=== PATIENT | male | born 1935 | race Hispanic/Latino ===

== ENCOUNTER 2019-02-08 20:04 | Emergency (ER) | payer MEDICARE ==
--- NOTE | 2019-02-08 20:22 | Emergency Department Report ---
Blank Doc - Documentation Documentation: 83 y/o male c/o abd pain.
[2019-02-08 21:04] LABS: Basophils # (Auto) 0.1 K/mm3 (0.0-0.1); Basophils % (Auto) 1.2 % (0.0-1.8); Eosinophils # (Auto) 0.2 K/mm3 (0.0-0.4); Eosinophils % (Auto) 2.7 % (0.0-4.3); Hematocrit 40.2 % (35.5-45.6); Hemoglobin 13.9 gm/dl (11.8-15.2); Lymphocytes # (Auto) 2.3 K/mm3 (1.2-5.4); Mean Corpuscular HGB Conc 35 % (32-34); Mean Corpuscular Volume 94 fl (84-94); Monocytes # (Auto) 0.6 K/mm3 (0.0-0.8); Monocytes % (Auto) 7.4 % (0.0-7.3); Platelet Count 208 K/mm3 (140-440); Red Blood Count 4.28 M/mm3 (3.65-5.03); Red Cell Distribution Width 13.5 % (13.2-15.2)
[2019-02-08 21:21] LABS: Calcium 8.8 mg/dL (8.4-10.2)
[2019-02-08 21:22] LABS: Albumin 4.1 g/dL (3.9-5)
--- NOTE | 2019-02-08 23:01 | Emergency Department Report ---
HPI - General Chief Complaint: Abdominal Pain Time Seen by Provider: 02/08/19 20:18 - HPI HPI: 83-year-old male presents to the emergency department for evaluation of some abdominal pain that he was having. Currently, the patient denies any abdominal pain. He denies any chest pain, shortness of breath, back pain, dysuria, constipation or diarrhea, fever. He has a past medical history of dementia, CVA and coronary artery disease with previous CABG. The patient's son is currently at bedside and says that when he arrived at his father's residence this afternoon that the patient was complaining of some abdominal pain. He has not taken anything for his symptoms prior to arrival. ED Past Medical Hx - Past Medical History Previous Medical History?: Yes Hx Hypertension: Yes Hx CVA: Yes Hx Renal Disease: Yes Hx Dementia: Yes Additional medical history: high cholesterol, history of recurrent gouty arthritis - Surgical History Past Surgical History?: Yes Hx Open Heart Surgery: Yes (CARDIAC BY PASS TRIPPLE BYPASS HX) - Social History Smoking Status: Never Smoker Substance Use Type: None - Medications Home Medications: Home Medications Medication Instructions Recorded Confirmed Last Taken Type Benazepril HCl [Lotensin] 40 mg PO DAILY 09/03/14 05/18/17 Unknown History Metoprolol [Lopressor TAB] 100 mg PO DAILY 09/03/14 05/18/17 Unknown History Simvastatin (Nf) [Zocor TAB] 20 mg PO QHS 09/03/14 05/18/17 Unknown History Donepezil [Aricept] 10 mg PO QDAY 05/18/17 05/18/17 Unknown History Rivastigmine [Rivastigmine Patch 1 each TRANSDERMA DAILY 05/18/17 05/18/17 Unknown History 13.3mg/24hr] levoFLOXacin [Levaquin TAB] 500 mg PO Q24HR #7 tablet 05/24/17 Unknown Rx ED Review of Systems ROS: Stated complaint: ABDOMINAL PAIN Other details as noted in HPI Comment: All other systems reviewed and negative Constitutional: denies: chills, fever Eyes: denies: eye pain, vision change ENT: denies: ear pain, throat pain Respiratory: denies: cough, shortness of breath Cardiovascular: denies: chest pain, palpitations Gastrointestinal: abdominal pain. denies: vomiting Genitourinary: denies: dysuria, discharge Musculoskeletal: denies: back pain, arthralgia Skin: denies: rash, lesions Neurological: denies: headache, weakness Physical Exam - Physical Exam Vital Signs: Vital Signs 02/08/19 20:18 Temperature 98.5 F Pulse Rate 75 Respiratory 19 Rate Blood Pressure 142/70 O2 Sat by Pulse 95 Oximetry Physical Exam: GENERAL: The patient is well-developed well-nourished. HEENT: Normocephalic. Atraumatic. Patient has moist mucous membranes. EYES: Extraocular motions are intact. NECK: Supple. Trachea is midline. CHEST/LUNGS: Clear to auscultation. There is no respiratory distress noted. HEART/CARDIOVASCULAR: Regular. There is no tachycardia. There is no obvious murmur. ABDOMEN: Abdomen is soft, nontender. Patient has normal bowel sounds. There is no abdominal distention. SKIN: Skin is warm and dry. NEURO: The patient is awake, alert, and oriented. The patient is cooperative. The patient has no focal neurologic deficits. The patient has normal speech. MUSCULOSKELETAL: There is no tenderness or deformity. There is no limitation range of motion. There is no evidence of acute injury. ED Course Vital Signs 02/08/19 20:18 Temperature 98.5 F Pulse Rate 75 Respiratory 19 Rate Blood Pressure 142/70 O2 Sat by Pulse 95 Oximetry ED Medical Decision Making - Lab Data Result diagrams: 02/08/19 20:41 02/08/19 20:41 - Medical Decision Making this patient originally must have complained of abdominal pain to his son that them to urgent care, and then to this emergency department within the urgent care would not see them. He had some labs to triage that are unremarkable including a CBC and CMP. The patient denies any abdominal pain or any symptoms at this time. Since the patient does have some history of dementia, I did a thorough physical examination, and asked multiple questions including review of systems, but the patient denies any complaints. Vital signs are stable throughout his ED course and the patient has been here for about 3 hours. Since he is asymptomatic with unremarkable labs and normal/stable vitals, the patient will be discharged home. They have been instructed to return to the emergency department immediately if there is any return of his abdominal pain, or with any acute distress. Critical Care Time: No Critical care attestation.: If time is entered above; I have spent that time in minutes in the direct care of this critically ill patient, excluding procedure time. ED Disposition Clinical Impression: Intermittent abdominal pain Disposition: DC- TO HOME OR SELFCARE Is pt being admited?: No Condition: Stable Instructions: Abdominal Pain (ED) Additional Instructions: Return to the emergency department if you have any return of your abdominal pain, any acute distress. Otherwise, follow-up with your primary care physician. Referrals: Primary Care Physician, Your [Other] - 2-3 Days Time of Disposition: 23:00
[2019-02-08 23:24] VITALS: BP 138/71
== END 2019-02-08 23:05 | disposition home or self-care (01) ==
LOC: ED 20:04
DX: R10.9 Unspecified abdominal pain (principal); I10 Essential (primary) hypertension; E78.00 Pure hypercholesterolemia, unspecified; Z86.73 Personal history of transient ischemic attack (TIA), and cerebral infarction without residual deficits; Z95.1 Presence of aortocoronary bypass graft
CPT/HCPCS: 36415; 80053; 85025; 99283

== ENCOUNTER 2019-03-19 09:31 | Emergency (ER) | payer MEDICARE ==
--- NOTE | 2019-03-19 10:45 | XRay Report ---
RIGHT KNEE, 3 views: History: Pain. Normal bone mineralization. Moderate medial compartment joint space narrowing is identified. Mild retropatellar and tibial spine spurring. There is mild calcinosis of the lateral meniscus. No evidence for fracture, bone lesion or large joint effusion. Diffuse vascular calcifications are noted consistent with diabetes or peripheral vascular disease. IMPRESSION: Mild osteoarthritis.
[2019-03-19 10:58] LABS: Basophils # (Auto) 0.1 K/mm3 (0.0-0.1); Basophils % (Auto) 0.5 % (0.0-1.8); Eosinophils % (Auto) 0.3 % (0.0-4.3); Hematocrit 42.1 % (35.5-45.6); Hemoglobin 14.1 gm/dl (11.8-15.2); Lymphocytes # (Auto) 1.6 K/mm3 (1.2-5.4); Lymphocytes % (Auto) 13.7 % (13.4-35.0); Mean Corpuscular HGB Conc 34 % (32-34); Mean Corpuscular Volume 94 fl (84-94); Monocytes # (Auto) 0.9 K/mm3 (0.0-0.8); Monocytes % (Auto) 7.8 % (0.0-7.3); Platelet Count 207 K/mm3 (140-440); Red Blood Count 4.46 M/mm3 (3.65-5.03); Red Cell Distribution Width 13.6 % (13.2-15.2)
--- NOTE | 2019-03-19 11:07 | Emergency Department Report ---
ED Fall HPI - General Chief Complaint: Fall Stated Complaint: LEG PAIN Time Seen by Provider: 03/19/19 10:11 Source: family Mode of arrival: Wheelchair - History of Present Illness Initial Comments: 83-year-old male with history of dementia presents following a fall at home. The patient's roommate states his legs gave out and he fell down. No LOC reported. Patient reports right knee pain. Denies headache, chest pain, shortness of breath, abdominal pain, vomiting. MD Complaint: fall Fall From: standing Fall Witnessed: yes, by bystander (roommate) Place Fall Occurred: home Location - Extremities: Right: Knee Associated Symptoms: denies: headache, neck pain, chest paint, shortness of breath, abdominal pain - Related Data Home Medications Medication Instructions Recorded Confirmed Last Taken Benazepril HCl [Lotensin] 40 mg PO DAILY 09/03/14 05/18/17 Unknown Metoprolol [Lopressor TAB] 100 mg PO DAILY 09/03/14 05/18/17 Unknown Simvastatin (Nf) [Zocor TAB] 20 mg PO QHS 09/03/14 05/18/17 Unknown Donepezil [Aricept] 10 mg PO QDAY 05/18/17 05/18/17 Unknown Rivastigmine [Rivastigmine Patch 1 each TRANSDERMA DAILY 05/18/17 05/18/17 Unknown 13.3mg/24hr] Previous Rx's Medication Instructions Recorded Last Taken Type levoFLOXacin [Levaquin TAB] 500 mg PO Q24HR #7 tablet 05/24/17 Unknown Rx Allergies Allergy/AdvReac Type Severity Reaction Status Date / Time No Known Allergies Allergy Verified 03/19/19 09:40 ED Review of Systems ROS: Stated complaint: LEG PAIN Other details as noted in HPI Comment: Unobtainable due to pts medical conditions (dementia) ED Past Medical Hx - Past Medical History Hx Hypertension: Yes Hx CVA: Yes Hx Renal Disease: Yes Hx Dementia: Yes Additional medical history: high cholesterol, history of recurrent gouty arthritis - Surgical History Hx Open Heart Surgery: Yes (CARDIAC BY PASS TRIPPLE BYPASS HX) - Social History Smoking Status: Unknown if ever smoked - Medications Home Medications: Home Medications Medication Instructions Recorded Confirmed Last Taken Type Benazepril HCl [Lotensin] 40 mg PO DAILY 09/03/14 05/18/17 Unknown History Metoprolol [Lopressor TAB] 100 mg PO DAILY 09/03/14 05/18/17 Unknown History Simvastatin (Nf) [Zocor TAB] 20 mg PO QHS 09/03/14 05/18/17 Unknown History Donepezil [Aricept] 10 mg PO QDAY 05/18/17 05/18/17 Unknown History Rivastigmine [Rivastigmine Patch 1 each TRANSDERMA DAILY 05/18/17 05/18/17 Unknown History 13.3mg/24hr] levoFLOXacin [Levaquin TAB] 500 mg PO Q24HR #7 tablet 05/24/17 Unknown Rx ED Physical Exam - General Limitations: No Limitations, Altered Mental Status, Physical Limitation General appearance: alert, in no apparent distress - Head Head exam: Present: atraumatic, normocephalic - Eye Eye exam: Present: normal appearance - ENT ENT exam: Present: mucous membranes moist - Neck Neck exam: Present: normal inspection - Respiratory Respiratory exam: Present: normal lung sounds bilaterally. Absent: respiratory distress - Cardiovascular Cardiovascular Exam: Present: regular rate, normal rhythm - GI/Abdominal GI/Abdominal exam: Present: soft. Absent: distended, tenderness - Extremities Exam Extremities exam: Present: other (tenderness to right knee w/ decreased ROM) - Neurological Exam Neurological exam: Present: altered (oriented to self) - Psychiatric Psychiatric exam: Present: normal affect, normal mood - Skin Skin exam: Present: warm, dry, intact, normal color. Absent: rash ED Course Vital Signs 03/19/19 03/19/19 09:47 13:46 Temperature 98.4 F Pulse Rate 83 92 H Respiratory 18 18 Rate Blood Pressure 153/83 129/77 [Left] Blood Pressure 165/76 [Right] O2 Sat by Pulse 96 96 Oximetry ED Medical Decision Making - Lab Data Result diagrams: 03/19/19 10:47 03/19/19 10:47 - EKG Data -: EKG Interpreted by Me EKG shows normal: sinus rhythm, axis, intervals, ST-T waves Rate: normal - EKG Data When compared to previous EKG there are: no significant change Interpretation: other (RBBB) - Radiology Data Radiology results: report reviewed, image reviewed - Medical Decision Making 83 yo M w/ dementia and fall at home. Workup negative. Pt has been awake and alert, having conversations with staff. Pleasantly demented. Pt is ambulatory without difficulty. Roommate called upon discharge to take pt home. Return precautions given. Outpt f/u advised. - Differential Diagnosis intracranial injury, UTI, fracture, sprain Critical care attestation.: If time is entered above; I have spent that time in minutes in the direct care of this critically ill patient, excluding procedure time. ED Disposition Clinical Impression: Fall, Contusion of knee, right Disposition: DC- TO HOME OR SELFCARE Is pt being admited?: No Condition: Stable Instructions: Knee Sprain (ED), Fall Prevention for Older Adults (ED) Referrals: PRIMARY CARE, [Primary Care Provider] - 3-5 Days [facility] [Provider Group] - 3-5 Days Time of Disposition: 13:51
[2019-03-19 11:25] LABS: Alanine Aminotransferase 22 units/L (7-56); Albumin 3.9 g/dL (3.9-5); BUN/Creatinine Ratio 18; Blood Urea Nitrogen 23 mg/dL (9-20); Hemolysis Index 6
--- NOTE | 2019-03-19 12:00 | Cat Scan Report ---
CT HEAD WITHOUT CONTRAST: HISTORY: Fall. TECHNIQUE: Sequential CT images without contrast. FINDINGS: Images obtained show bilateral prominence of the sulci and ventricles. There are no abnormal intra- or extra-axial blood or fluid collections. There are no focal masses or evidence of mass effect. The re[place] white matter differentiation appears within normal limits. Regions of periventricular decreased attenuation are consistent with microangiopathic ischemic disease. The posterior fossa structures including the fourth ventricle, cerebellum, and brainstem appear normal. IMPRESSION: Evidence of atrophy and microangiopathic ischemic disease. No acute intracranial process noted.
[2019-03-19 13:17] LABS: Bilirubin,Urine NEG (Negative); Blood,Urine SM (Negative); Color,Urine Yellow (Yellow); Mucus,Urine FEW /HPF
[2019-03-19 13:49] VITALS: BP 129/77
== END 2019-03-19 14:00 | disposition home or self-care (01) ==
LOC: ED 09:31
DX: S80.01XA Contusion of right knee, initial encounter (principal); I10 Essential (primary) hypertension; F03.90 Unspecified dementia, unspecified severity, without behavioral disturbance, psychotic disturbance, mood disturbance, and anxiety; I25.2 Old myocardial infarction; E78.00 Pure hypercholesterolemia, unspecified; Z79.899 Other long term (current) drug therapy; W19.XXXA Unspecified fall, initial encounter; Y93.89 Activity, other specified; Y92.019 Unspecified place in single-family (private) house as the place of occurrence of the external cause; Y99.8 Other external cause status
CPT/HCPCS: 36415; 70450; 80053; 81001; 84484; 85025; 93005; 93010

== ENCOUNTER 2019-07-30 10:12 | Inpatient (IN) | payer MEDICARE ==
[2019-07-30 11:39] LABS: Basophils # (Auto) 0.1 K/mm3 (0.0-0.1); Basophils % (Auto) 0.6 % (0.0-1.8); Eosinophils % (Auto) 0.1 % (0.0-4.3); Hematocrit 44.8 % (35.5-45.6); Lymphocytes # (Auto) 1.1 K/mm3 (1.2-5.4); Mean Corpuscular HGB Conc 34 % (32-34); Mean Corpuscular Volume 94 fl (84-94); Monocytes # (Auto) 0.7 K/mm3 (0.0-0.8); Monocytes % (Auto) 5.4 % (0.0-7.3); Platelet Count 223 K/mm3 (140-440); Red Blood Count 4.76 M/mm3 (3.65-5.03); Red Cell Distribution Width 13.9 % (13.2-15.2)
[2019-07-30 11:46] LABS: Calcium 9.4 mg/dL (8.4-10.2)
[2019-07-30] MEDS ORDERED: LORazepam 2 MG/ML VIAL IV ONE (13:15)
[2019-07-30 13:16] LABS: Bacteria,Urine 1+ /HPF (Negative); Bilirubin,Urine NEG (Negative); Blood,Urine SM (Negative); Color,Urine Yellow (Yellow); Mucus,Urine FEW /HPF; Urobilinogen,Urine < 2.0 mg/dL (<2.0)
[2019-07-30 13:22] LABS: Amphetamine Screen,Urine PRESUMPTIVE NEGATIVE; Benzodiazepines Screen,Urine PRESUMPTIVE NEGATIVE; Cannabinoid Screen,Urine PRESUMPTIVE NEGATIVE; Cocaine Screen,Urine PRESUMPTIVE NEGATIVE; Methadone Screen,Urine PRESUMPTIVE NEGATIVE; Opiate Screen,Urine PRESUMPTIVE NEGATIVE
[2019-07-30] MEDS ORDERED: ZIPRASIDONE MESYLATE 20 MG VIAL IM ONE (14:26)
[2019-07-30] MEDS ORDERED: WATER FOR INJ Sterile (PF) 10 ML ONE (14:29)
--- NOTE | 2019-07-30 15:09 | Emergency Department Report ---
ED Altered Mental Status HPI - General Chief Complaint: Altered Mental Status Stated Complaint: CONFUSION Time Seen by Provider: 07/30/19 11:54 Source: EMS Mode of arrival: Stretcher Limitations: Altered Mental Status - History of Present Illness Initial Comments: 84-year-old male with a past medical history dementia, CVA, hypertension, elevated cholesterol, and triple bypass presents to the hospital with worsening dementia. Patient lives with a common-law Gretchen. At the bedside, mild evaluation is his neighbor Andree White. Andree White comes by to take care of him every other day. She states that his dementia is worsening and he can no longer take care of himself. He is defecating and urinating all around the house. Today he was found outside in the yard where nothing but a shirt. They can no longer take care of him. Patient's 2 sons are currently incarcerated with one scheduled to get out of custodial in several weeks. They have been communicating with him regarding his son's condition. Patient alert but oriented 0 Contact numbers: Gretchen: [phone] Andree White: [phone] - Related Data Home Medications Medication Instructions Recorded Confirmed Last Taken Benazepril HCl [Lotensin] 40 mg PO DAILY 09/03/14 05/18/17 Unknown Metoprolol [Lopressor TAB] 100 mg PO DAILY 09/03/14 05/18/17 Unknown Simvastatin (Nf) [Zocor TAB] 20 mg PO QHS 09/03/14 05/18/17 Unknown Donepezil [Aricept] 10 mg PO QDAY 05/18/17 05/18/17 Unknown Rivastigmine [Rivastigmine Patch 1 each TRANSDERMA DAILY 05/18/17 05/18/17 Unknown 13.3mg/24hr] Previous Rx's Medication Instructions Recorded Last Taken Type levoFLOXacin [Levaquin TAB] 500 mg PO Q24HR #7 tablet 05/24/17 Unknown Rx Allergies Allergy/AdvReac Type Severity Reaction Status Date / Time No Known Allergies Allergy Verified 07/30/19 14:32 ED Review of Systems ROS: Stated complaint: CONFUSION Other details as noted in HPI Comment: Unobtainable due to pts medical conditions ED Past Medical Hx - Past Medical History Hx Hypertension: Yes Hx CVA: Yes Hx Renal Disease: Yes Hx Dementia: Yes Additional medical history: high cholesterol, history of recurrent gouty arthritis - Surgical History Hx Open Heart Surgery: Yes (CARDIAC BY PASS TRIPPLE BYPASS HX) - Social History Smoking Status: Unknown if ever smoked Substance Use Type: None - Medications Home Medications: Home Medications Medication Instructions Recorded Confirmed Last Taken Type Benazepril HCl [Lotensin] 40 mg PO DAILY 09/03/14 05/18/17 Unknown History Metoprolol [Lopressor TAB] 100 mg PO DAILY 09/03/14 05/18/17 Unknown History Simvastatin (Nf) [Zocor TAB] 20 mg PO QHS 09/03/14 05/18/17 Unknown History Donepezil [Aricept] 10 mg PO QDAY 05/18/17 05/18/17 Unknown History Rivastigmine [Rivastigmine Patch 1 each TRANSDERMA DAILY 05/18/17 05/18/17 Unknown History 13.3mg/24hr] levoFLOXacin [Levaquin TAB] 500 mg PO Q24HR #7 tablet 05/24/17 Unknown Rx ED Physical Exam - General Limitations: Altered Mental Status - Other Other exam information: Gen.: Soiled in feces Head: Atraumatic Eyes: Normal appearance ENT: Moist mucous membranes Neck: Normal appearance, no posterior midline tenderness, no meningismus Chest: Clear to auscultation bilaterally Cardiovascular: Regular rate and rhythm Abdomen: Normal appearance, soft, nontender, no rebound or guarding, normal bow el sounds Back: Normal appearance, nontender Extremity: Full range of motion, normal appearance Neuro: Alert oriented 0, clear speech, no focal motor or sensory deficit Psychiatric: Appropriate Skin: No rash ED Course Vital Signs 07/30/19 07/30/19 07/30/19 10:41 10:46 11:13 Temperature 99.0 F 99 F Pulse Rate 86 100 H 86 Respiratory 14 11 L 14 Rate Blood Pressure 197/84 161/86 Blood Pressure 167/84 [Right] O2 Sat by Pulse 98 96 98 Oximetry 07/30/19 07/30/19 07/30/19 11:14 11:53 12:16 Temperature Pulse Rate 92 H 98 H Respiratory 14 16 18 Rate Blood Pressure 150/83 Blood Pressure 150/83 [Right] O2 Sat by Pulse 98 98 99 Oximetry 07/30/19 07/30/19 07/30/19 14:31 16:01 17:01 Temperature Pulse Rate 94 H 100 H 95 H Respiratory 13 11 L 11 L Rate Blood Pressure 164/82 177/77 186/119 Blood Pressure [Right] O2 Sat by Pulse Oximetry 07/30/19 07/30/19 07/30/19 19:00 19:15 19:31 Temperature 98.7 F Pulse Rate 98 H 79 85 Respiratory 15 9 L 11 L Rate Blood Pressure 142/79 Blood Pressure 151/80 142/79 [Right] O2 Sat by Pulse 99 96 99 Oximetry 07/30/19 07/30/19 20:16 21:30 Temperature Pulse Rate 89 82 Respiratory 12 12 Rate Blood Pressure 152/77 138/72 Blood Pressure [Right] O2 Sat by Pulse 97 99 Oximetry - Reevaluation(s) Reevaluation #1: 07/30/19 15:12 Patient signed out to Dr. chatterjee to follow up CT head report once the chem be obtained as well as follow-up EKG to ensure no signs of A. fib since initial EKG suggests A. fib which is likely artifact - Consultations Consultation #1: 07/30/19 15:10 case was d/w , case management consult ordered - Lab Data Result diagrams: 07/30/19 Unknown 07/30/19 Unknown Lab Results 07/30/19 07/30/19 Range/Units 12:41 12:41 Urine Color Yellow (Yellow) Urine Turbidity Clear (Clear) Urine pH 5.0 (5.0-7.0) Ur Specific [employer] 1.016 (1.003-1.030) Urine Protein 30 mg/dl (Negative) mg/dL Urine Glucose (UA) Neg (Negative) mg/dL Urine Ketones 20 (Negative) mg/dL Urine Blood Sm (Negative) Urine Nitrite Neg (Negative) Urine Bilirubin Neg (Negative) Urine Urobilinogen < 2.0 (<2.0) mg/dL Ur Leukocyte Esterase Neg (Negative) Urine WBC (Auto) 1.0 (0.0-6.0) /HPF Urine RBC (Auto) 1.0 (0.0-6.0) /HPF U Epithel Cells (Auto) 1.0 (0-13.0) /HPF Urine Bacteria (Auto) 1+ (Negative) /HPF Urine Mucus Few /HPF Urine Opiates Screen Presumptive negative Urine Methadone Screen Presumptive negative Ur Barbiturates Screen Presumptive negative Ur Phencyclidine Scrn Presumptive negative Ur Amphetamines Screen Presumptive negative U Benzodiazepines Scrn Presumptive negative Urine Cocaine Screen Presumptive negative U Marijuana (THC) Screen Presumptive negative Drugs of Abuse Note Disclamer - EKG Data -: EKG Interpreted by Me (appears to be sinus with a lot of artifact with a right bundle-branch block) EKG shows normal: sinus rhythm When compared to previous EKG there are: other (previous EKG also with right bundle) - Radiology Data Radiology results: report reviewed CT head without contrast Clinical history: Dementia, fall FINDINGS: The motion degrades image quality at. However, there is again advanced to cerebral atrophy with associated prominence of the ventricular system which correlates with the previous CT of 03/19/2019. There is no definitive CT evidence of acute intracranial hemorrhage or significant mass effect. There also appears to be a persistent mild cerebral white matter disease most consistent with microvascular angiopathy. The visualized paranasal sinuses are clear. All CT scans at this location are performed using the CT dose reduction for [employer] by means of automated exposure control. IMPRESSION: There is continued mild microvascular angiopathy and advanced cerebral atrophy without definitive CT evidence of acute intracranial hemorrhage. - Medical Decision Making pt s/o to dr jackson to d/c worsening dementia unable to care for self outreach and education social worker vs admission ct head pending at dispo pt required ativan, geodon, and physical restraints in order to complete workup - Differential Diagnosis dementia, delirium, intracranial hemorrhage, UTI, encephalopathy Critical Care Time: No Critical care attestation.: If time is entered above; I have spent that time in minutes in the direct care of this critically ill patient, excluding procedure time. ED Disposition Clinical Impression: Dementia Qualifiers: Dementia type: vascular dementia Dementia behavioral disturbance: without behavioral disturbance Qualified Code(s): F01.50 - Vascular dementia without behavioral disturbance Disposition: DC-09 OP ADMIT IP TO THIS HOSP Is pt being admited?: No Condition: Stable
[2019-07-30] MEDS ORDERED: diphenhydrAMINE 50 MG/ML VIAL ONE (16:27)
--- NOTE | 2019-07-30 17:51 | Cat Scan Report ---
CT head without contrast Clinical history: Dementia, fall FINDINGS: The motion degrades image quality at. However, there is again advanced to cerebral atrophy with associated prominence of the ventricular system which correlates with the previous CT of 03/19/20 19. There is no definitive CT evidence of acute intracranial hemorrhage or significant mass effect. There also appears to be a persistent mild cerebral white matter disease most consistent with microva scular angiopathy. The visualized paranasal sinuses are clear. All CT scans at this location are perf ormed using the CT dose reduction for [employer] by means of automated exposure control. IMPRESSION: There is continued mild microvascular angiopathy and advanced cerebral atrophy without definitive CT evidence of acute intracranial hemorrhage. Signer Name: Krishan Del Rio MD Signed: 07/30/2019 5:47 PM Workstation Name: [id number]
[2019-07-30] MEDS ORDERED: SODIUM CHLORIDE 0.9% 1000 ML 1,000 ML IV ONE (20:22)
[2019-07-30] MEDS ORDERED: cefTRIAXone/NS 2 GM/100 ML 2 GM/100 ML BAG IV ONE ×2 (20:23→22:00)
--- NOTE | 2019-07-30 20:24 | History and Physical Report ---
History of Present Illness Chief complaint: He is confused, and he is too weak to do anything History of present illness: 84 YO male with HTN, CVA, Dementia, CAD S/P CABG, HLD, Debility presents to ED for evaluation. Pt states is confused, and lethargic and unable to provide history. Pt history provided by friend who is at bedside during exam and interview. As per friend, the patient has become increasing weak and confuded over the past 6 months with progressively worsening symptoms over the past 2 weeks. Pt currently requires 6/6 assistance with activities of daily living. Pt is bedbound, nonambulatory, and incontinent of bowel and bladder. Pt is unable to feed himself. Pt was found outside his home today lying in the yard with only a Tshirt on. EMS notified by the neighbor, and upon arrival the patient was found to be in distress. Pt transported to [facility]. Pt seen and evaluated in ED and found to have Encephalopathy, SIRS, and Debility. Pt admitted to [facility] and treated with IV antibiotic therapy and supportive care. Case management consulted for discharge planning. No further history obtainable. Prior admission on 05/18/17 reviewed. Past History Past Medical History: arthritis, CAD, hypertension, hyperlipidemia, stroke, other (Dementia) Past Surgical History: CABG Social history: single. denies: smoking, alcohol abuse, prescription drug abuse Family history: hypertension Medications and Allergies Allergies Allergy/AdvReac Type Severity Reaction Status Date / Time No Known Allergies Allergy Verified 07/30/19 14:32 Home Medications Medication Instructions Recorded Confirmed Last Taken Type Benazepril HCl [Lotensin] 40 mg PO DAILY 09/03/14 05/18/17 Unknown History Metoprolol [Lopressor TAB] 100 mg PO DAILY 09/03/14 05/18/17 Unknown History Simvastatin (Nf) [Zocor TAB] 20 mg PO QHS 09/03/14 05/18/17 Unknown History Donepezil [Aricept] 10 mg PO QDAY 05/18/17 05/18/17 Unknown History Rivastigmine [Rivastigmine Patch 1 each TRANSDERMA DAILY 05/18/17 05/18/17 Unknown History 13.3mg/24hr] levoFLOXacin [Levaquin TAB] 500 mg PO Q24HR #7 tablet 05/24/17 Unknown Rx Active Meds: Active Medications Sodium Chloride (Nacl 0.9% 1000 Ml) 1,000 mls @ 999 mls/hr IV BOLUS ONE Stop: 07/30/19 21:22 Ceftriaxone Sodium (Rocephin/Ns 2 Gm/100 Ml) 2 gm in 100 mls @ 200 mls/hr IV ONCE ONE; Protocol Stop: 07/30/19 20:52 Review of Systems ROS unobtainable: due to mental status Exam - Constitutional Vitals: Temp Pulse Resp BP Pulse Ox 98.7 F 85 11 L 142/79 99 07/30/19 19:31 07/30/19 19:31 07/30/19 19:31 07/30/19 19:31 07/30/19 19:31 General appearance: Present: mild distress, disheveled, malodorous - EENT Eyes: Present: miosis ENT: hearing decreased - Neck Neck: Present: supple, normal ROM - Respiratory Respiratory: bilateral: diminished, rhonchi - Cardiovascular Heart Sounds: Present: S1 & S2. Absent: rub, click - Extremities Extremities: pulses symmetrical, No edema Peripheral Pulses: within normal limits - Abdominal General gastrointestinal: Present: soft, non-tender, non-distended, normal bowel sounds Male genitourinary: Present: normal - Integumentary Integumentary: Present: clear, dry, clammy, decreased turgor - Musculoskeletal Musculoskeletal: generalized weakness - Psychiatric Psychiatric: no appropriate mood/affect, no intact judgment & insight, no memory intact - Neurologic Neurologic: moves all extremities, no gait normal Results - Labs CBC & Chem 7: 07/30/19 Unknown 07/30/19 Unknown Labs: Abnormal lab results 07/30/19 07/30/19 Range/Units Unknown Unknown WBC 13.5 H (4.5-11.0) K/mm3 Lymph % (Auto) 8.0 L (13.4-35.0) % Lymph # 1.1 L (1.2-5.4) K/mm3 Seg Neutrophils % 85.9 H (40.0-70.0) % Seg Neutrophils # 11.6 H (1.8-7.7) K/mm3 Glucose 125 H (75-100) mg/dL Assessment and Plan - Patient Problems (1) SIRS (systemic inflammatory response syndrome) Current Visit: Yes Status: Acute Plan to address problem: IV antibiotic therapy, IVF resuscitation therapy, CBC, CMP, Urinalysis, Chest X ray, pending at time of admission. (2) Encephalopathy Current Visit: Yes Status: Acute Plan to address problem: CT Head, neuro check, seizure precautions, aspiration precautions, fall precautions, thyroid panel (3) Dementia Current Visit: Yes Status: Acute Qualifiers: Dementia type: vascular dementia Dementia behavioral disturbance: without behavioral disturbance Qualified Code(s): F01.50 - Vascular dementia without behavioral disturbance Plan to address problem: continue supportive care. neuro check, fall precautions. ativan prn (4) Debility Current Visit: Yes Status: Acute Plan to address problem: Fall precautions, supportive care. PT when/if awake and alert. (5) Osteoarthritis Current Visit: Yes Status: Acute Qualifiers: Laterality: unspecified laterality Plan to address problem: Pain control, supportive care. (6) DVT prophylaxis Current Visit: Yes Status: Acute Plan to address problem: SCD to BLE while in bed, prophylactic heparin
[2019-07-30] MEDS ORDERED: ONDANSETRON 4 MG/2 ML INJ IV PRN (20:28)
[2019-07-30] MEDS ORDERED: ACETAMINOPHEN 325 MG TAB PO PRN (20:28)
[2019-07-30] MEDS ORDERED: ALBUTEROL 2.5 MG/3 ML NEBU IH PRN (20:28)
[2019-07-30] MEDS ORDERED: SODIUM CHLORIDE 0.45% 1000 ML 1,000 ML IV SCH (21:00)
[2019-07-30] MEDS ORDERED: SODIUM CHLORIDE 0.9% 1000 ML 1,000 ML ONE (21:01)
[2019-07-30] MEDS ORDERED: NON-FORMULARY EACH (Simvastatin (Nf) 20 MG) PO SCH (22:00)
[2019-07-30 22:05] LABS: Free T4 (Free Thyroxine) 1.23 ng/dL (0.76-1.46)
--- NOTE | 2019-07-30 22:46 | XRay Report ---
CHEST 1 VIEW 2057 INDICATION / CLINICAL INFORMATION: cough. COMPARISON: 05/18/2017 FINDINGS: SUPPORT DEVICES: None HEART / MEDIASTINUM: Cardiomegaly LUNGS / PLEURA: Mild congestive changes are seen with slight interstitial pulmonary edema. No areas o f consolidation are seen. No pneumothorax. ADDITIONAL FINDINGS: No significant additional findings. IMPRESSION: Mild congestive failure Signer Name: Edgar Farrar MD Signed: 07/30/2019 10:41 PM Workstation Name: [id number]
--- NOTE | 2019-07-30 22:50 | Event Note ---
nurse concerned that
[2019-07-30] MEDS: PRAVASTATIN 40 MG TAB PO SCH (23:17)
[2019-07-30] MEDS: HEPARIN 5,000 UNIT/1 ML VIAL SUB-Q SCH (23:18)
[2019-07-31 06:30] LABS: Basophils % (Auto) 0.5 % (0.0-1.8); Eosinophils # (Auto) 0.1 K/mm3 (0.0-0.4); Eosinophils % (Auto) 0.6 % (0.0-4.3); Hematocrit 41.5 % (35.5-45.6); Hemoglobin 13.9 gm/dl (11.8-15.2); Lymphocytes # (Auto) 1.3 K/mm3 (1.2-5.4); Lymphocytes % (Auto) 12.7 % (13.4-35.0); Mean Corpuscular HGB Conc 34 % (32-34); Mean Corpuscular Volume 94 fl (84-94); Monocytes # (Auto) 0.7 K/mm3 (0.0-0.8); Monocytes % (Auto) 6.2 % (0.0-7.3); Platelet Count 192 K/mm3 (140-440); Red Blood Count 4.39 M/mm3 (3.65-5.03); Red Cell Distribution Width 13.7 % (13.2-15.2)
[2019-07-31 06:47] LABS: Alanine Aminotransferase 17 units/L (7-56); Albumin 3.5 g/dL (3.9-5); BUN/Creatinine Ratio 12; Blood Urea Nitrogen 12 mg/dL (9-20); Calcium 8.6 mg/dL (8.4-10.2); Hemolysis Index 8
[2019-07-31] MEDS: METOPROLOL TARTRATE 100 MG TAB PO SCH (09:39)
[2019-07-31] MEDS: DONEPEZIL 10 MG TAB PO SCH (09:40)
[2019-07-31] MEDS: LISINOPRIL 40 MG TAB PO SCH (09:40)
[2019-07-31] MEDS: HEPARIN 5,000 UNIT/1 ML VIAL SUB-Q SCH ×2 (09:40→22:39)
[2019-07-31] MEDS ORDERED: RIVASTIGMINE TRANSDERMA SCH (10:00)
[2019-07-31] MEDS ORDERED: BENAZEPRIL HCL 40 MG PO SCH (10:00)
--- NOTE | 2019-07-31 12:21 | Progress Note ---
Assessment and Plan Assessment and plan: 84 YO male with HTN, CVA, Dementia, CAD S/P CABG, HLD, Debility presents to ED for evaluation. Pt states is confused, and lethargic and unable to provide history. Pt history provided by friend who is at bedside during exam and interview. As per friend, the patient has become increasing weak and confused over the past 6 months with progressively worsening symptoms over the past 2 weeks. Pt currently requires 6/6 assistance with activities of daily living. Pt is bedbound, nonambulatory, and incontinent of bowel and bladder. Pt is unable to feed himself. Pt was found outside his home today lying in the yard with only a Tshirt on. EMS notified by the neighbor, and upon arrival the patient was found to be in distress. Pt transported to [facility]. Pt seen and evaluated in ED and found to have Encephalopathy, SIRS, and Debility. Pt admitted to [facility] and treated with IV antibiotic therapy and supportive care. Case management consulted for discharge planning. No further history obtainable. Prior admission on 05/18/17 reviewed. Hypoxia. 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 ASKING FOR ETOH Hospitalist Physical - Physical exam Narrative exam: General appearance: Present: mild distress, disheveled, malodorous - EENT Eyes: Present: miosis ENT: hearing decreased - Neck Neck: Present: supple, normal ROM - Respiratory Respiratory: bilateral: diminished, rhonchi - Cardiovascular Heart Sounds: Present: S1 & S2. Absent: rub, click - Extremities Extremities: pulses symmetrical, No edema Peripheral Pulses: within normal limits - Abdominal General gastrointestinal: Present: soft, non-tender, non-distended, normal bowel sounds Male genitourinary: Present: normal - Integumentary Integumentary: Present: clear, dry, decreased turgor - Musculoskeletal Musculoskeletal: generalized weakness - Psychiatric Psychiatric: no appropriate mood/affect, no intact judgment & insight, no memory intact - Neurologic Neurologic: moves all extremities, no gait normal - Constitutional Vitals: Temp Pulse Resp BP Pulse Ox 99.0 F 76 22 157/83 98 07/31/19 07:47 07/31/19 07:47 07/31/19 07:47 07/31/19 07:47 07/31/19 09:12 General appearance: Present: mild distress, disheveled, malodorous Results - Labs CBC & Chem 7: 07/31/19 05:36 07/31/19 05:36 Labs: Laboratory Last Values WBC 10.5 K/mm3 (4.5-11.0) 07/31/19 05:36 RBC 4.39 M/mm3 (3.65-5.03) 07/31/19 05:36 Hgb 13.9 gm/dl (11.8-15.2) 07/31/19 05:36 Hct 41.5 % (35.5-45.6) 07/31/19 05:36 MCV 94 fl (84-94) 07/31/19 05:36 MCH 32 pg (28-32) 07/31/19 05:36 MCHC 34 % (32-34) 07/31/19 05:36 RDW 13.7 % (13.2-15.2) 07/31/19 05:36 Plt Count 192 K/mm3 (140-440) 07/31/19 05:36 Lymph % (Auto) 12.7 % (13.4-35.0) L 07/31/19 05:36 [place] % (Auto) 6.2 % (0.0-7.3) 07/31/19 05:36 Eos % (Auto) 0.6 % (0.0-4.3) 07/31/19 05:36 Baso % (Auto) 0.5 % (0.0-1.8) 07/31/19 05:36 Lymph # 1.3 K/mm3 (1.2-5.4) 07/31/19 05:36 [place] # 0.7 K/mm3 (0.0-0.8) 07/31/19 05:36 Eos # 0.1 K/mm3 (0.0-0.4) 07/31/19 05:36 Baso # 0.0 K/mm3 (0.0-0.1) 07/31/19 05:36 Seg Neutrophils % 80.0 % (40.0-70.0) H 07/31/19 05:36 Seg Neutrophils # 8.4 K/mm3 (1.8-7.7) H 07/31/19 05:36 Sodium 142 mmol/L (137-145) 07/31/19 05:36 Potassium 3.6 mmol/L (3.6-5.0) 07/31/19 05:36 Chloride 103.8 mmol/L (98-107) 07/31/19 05:36 Carbon Dioxide 24 mmol/L (22-30) 07/31/19 05:36 Anion Gap 18 mmol/L 07/31/19 05:36 BUN 12 mg/dL (9-20) 07/31/19 05:36 Creatinine 1.0 mg/dL (0.8-1.5) 07/31/19 05:36 Estimated GFR > 60 ml/min 07/31/19 05:36 BUN/Creatinine Ratio 12 % 07/31/19 05:36 Glucose 93 mg/dL (75-100) 07/31/19 05:36 Calcium 8.6 mg/dL (8.4-10.2) 07/31/19 05:36 Magnesium 2.10 mg/dL (1.7-2.3) 07/30/19 21:10 Total Bilirubin 0.70 mg/dL (0.1-1.2) 07/31/19 05:36 AST 30 units/L (5-40) 07/31/19 05:36 ALT 17 units/L (7-56) 07/31/19 05:36 Alkaline Phosphatase 102 units/L (35-129) 07/31/19 05:36 Total Protein 6.7 g/dL (6.3-8.2) 07/31/19 05:36 Albumin 3.5 g/dL (3.9-5) L 07/31/19 05:36 Albumin/Globulin Ratio 1.1 % 07/31/19 05:36 TSH 4.220 mlU/mL (0.270-4.200) H 07/30/19 21:10 Free T4 1.23 ng/dL (0.76-1.46) 07/30/19 21:10 Urine Color Yellow (Yellow) 07/30/19 12:41 Urine Turbidity Clear (Clear) 07/30/19 12:41 Urine pH 5.0 (5.0-7.0) 07/30/19 12:41 Ur Specific [place] 1.016 (1.003-1.030) 07/30/19 12:41 Urine Protein 30 mg/dl mg/dL (Negative) 07/30/19 12:41 Urine Glucose (UA) Neg mg/dL (Negative) 07/30/19 12:41 Urine Ketones 20 mg/dL (Negative) 07/30/19 12:41 Urine Blood Sm (Negative) 07/30/19 12:41 Urine Nitrite Neg (Negative) 07/30/19 12:41 Urine Bilirubin Neg (Negative) 07/30/19 12:41 Urine Urobilinogen < 2.0 mg/dL (<2.0) 07/30/19 12:41 Ur Leukocyte Esterase Neg (Negative) 07/30/19 12:41 Urine WBC (Auto) 1.0 /HPF (0.0-6.0) 07/30/19 12:41 Urine RBC (Auto) 1.0 /HPF (0.0-6.0) 07/30/19 12:41 U Epithel Cells (Auto) 1.0 /HPF (0-13.0) 07/30/19 12:41 Urine Bacteria (Auto) 1+ /HPF (Negative) 07/30/19 12:41 Urine Mucus Few /HPF 07/30/19 12:41 Urine Opiates Screen Presumptive negative 07/30/19 12:41 Urine Methadone Screen Presumptive negative 07/30/19 12:41 Ur Barbiturates Screen Presumptive negative 07/30/19 12:41 Ur Phencyclidine Scrn Presumptive negative 07/30/19 12:41 Ur Amphetamines Screen Presumptive negative 07/30/19 12:41 U Benzodiazepines Scrn Presumptive negative 07/30/19 12:41 Urine Cocaine Screen Presumptive negative 07/30/19 12:41 U Marijuana (THC) Screen Presumptive negative 07/30/19 12:41 Drugs of Abuse Note Disclamer 07/30/19 12:41 Active Medications - Current Medications Current Medications: Generic Name Dose Route Start Last Admin Trade Name Freq PRN Reason Stop Dose Admin Acetaminophen 650 mg 07/30/19 20:28 Tylenol PO Q4H PRN Pain MILD(1-3)/Fever >100.5/BRITO Albuterol 2.5 mg 07/30/19 20:28 Proventil IH Q4HRT PRN Shortness Of Breath Donepezil HCl 10 mg 07/31/19 10:00 07/31/19 09:40 Aricept PO 10 mg QDAY SHAUN Administration Heparin Sodium (Porcine) 5,000 unit 07/30/19 22:00 07/31/19 09:40 Heparin SUB-Q 5,000 unit Q12HR SHAUN Administration Sodium Chloride 1,000 mls @ 42 mls/hr 07/30/19 21:00 07/30/19 23:16 Nacl 0.45% 1000 Ml IV 42 mls/hr DIRECT SHAUN Administration Levofloxacin/Dextrose 500 mg in 100 mls @ 100 mls/hr 07/31/19 10:00 07/31/19 12:08 Levaquin 500mg/100ml IV Infused Q24HR SHAUN Infusion Protocol Lisinopril 40 mg 07/31/19 10:00 07/31/19 09:40 Zestril PO 40 mg QDAY SHAUN Administration Metoprolol Tartrate 100 mg 07/31/19 10:00 07/31/19 09:39 Lopressor PO 100 mg DAILY SHAUN Administration Miscellaneous Medication 1 each 07/31/19 10:00 Rivastigmine [Rivastigmine Patch 13.3mg/24hr] TRANSDERMA DAILY SHAUN Ondansetron HCl 4 mg 07/30/19 20:28 Zofran IV Q8H PRN Nausea And Vomiting Pravastatin Sodium 40 mg 07/30/19 22:00 07/30/19 23:17 Pravachol PO 40 mg QHS SHAUN Administration Sodium Chloride 10 ml 07/30/19 22:00 07/31/19 09:40 Sodium Chloride Flush Syringe 10 Ml IV 10 ml BID SHAUN Administration Sodium Chloride 10 ml 07/30/19 20:28 Sodium Chloride Flush Syringe 10 Ml IV PRN PRN LINE FLUSH Nutrition/Malnutrition Assess - Dietary Evaluation Nutrition/Malnutrition Findings: Nutrition Notes Start: 07/31/19 09:53 Freq: Status: Active Protocol: Document 07/31/19 09:53 KS (Rec: 07/31/19 10:36 KS [id number]) Co-Sign 07/31/19 09:53 LM Nutrition Notes Need for Assessment generated from: utilization management nurse Initial or Follow up Assessment Current Diagnosis Coronary Artery Disease, Hypertension,Stroke Other Pertinent Diagnosis Dementia, HLD, Debility, Encephalopathy, SIRS, wounds Current Diet NPO Labs/Tests Reviewed Pertinent Medications Reviewed Height 6 ft 2 in Weight 86 kg [place] Body Weight (kg) 86.36 BMI 24.3 Subjective/Other Information RN screen for skin risk. Nathaniel score 10. Small skin breakdown on right toe. Pt in deep sleep at time of visit. Pt missing teeth documented in chart. Burn Absent Trauma Absent Minimum of two criteria No #1 Nutrition Diagnosis Predicted suboptimal energy intake Etiology dementia, debility, missing teeth As Evidenced by Signs and Symptoms pt inability to feed himself, pt is NPO Is patient on ventilator? No Is Patient Ambulatory and/or Out of Bed No REE-([facility]-confined to bed) 6.636 Calculation Used for Recommendations [facility] Additional Notes PRO: 69-86g/day (0.8-1g/kg/day ) Fluid: 1mL/kcal Nutrition Intervention Change Diet Order: Advance to mechanically soft diet when medically feasible Goal #1 Advance diet when medically feasible Anticipated Discharge Needs: Unable to determine at this time Follow-Up By: 08/01/19 Additional Comments Follow for diet advancement - Attestation Statement I have reviewed and agreed w/ Malnutrition eval & tx plan: Yes
[2019-07-31] MEDS ORDERED: hydrALAZINE 20 MG/1 ML INJ IV PRN (12:30)
[2019-07-31] MEDS ORDERED: LORazepam 2 MG/ML VIAL IV PRN ×2 (13:00)
[2019-07-31] MEDS ORDERED: 1: FOLIC ACID 1 MG, MULTIPLE VITAMIN INJ, ADULT 10 ML, THIAMINE 100 MG in SODIUM CHLORID IV SCH (13:00)
[2019-07-31 14:06] LABS: Albumin 3.2 g/dL (3.9-5); Bilirubin,Direct 0.2 mg/dL (0-0.2)
--- NOTE | 2019-07-31 15:37 | Consultation ---
History of Present Illness - Reason for Consult Consult date: 07/31/19 Reason for consult: Initial Psychiatric Evaluation - Chief Complaint Chief complaint: " I'm going home." - History of Present Psychiatric Illness Patient is an 84 year old white male that presents to the emergency room with altered mental states. He has a past medical history of dementia, CVA, hypertension, elevated cholesterol, and triple bypass. He presents to the hospital with worsening dementia. Patient lives with a common-law Gretchen.Provider unable to adequately assess patient secondary to confusion. Patient alert and oriented x 1. Patient responses to questions are inappropriate. Mild agitation is noted. Medications and Allergies Allergies Allergy/AdvReac Type Severity Reaction Status Date / Time No Known Allergies Allergy Verified 07/30/19 14:32 Home Medications Medication Instructions Recorded Confirmed Last Taken Type Benazepril HCl [Lotensin] 40 mg PO DAILY 09/03/14 05/18/17 Unknown History Metoprolol [Lopressor TAB] 100 mg PO DAILY 09/03/14 05/18/17 Unknown History Simvastatin (Nf) [Zocor TAB] 20 mg PO QHS 09/03/14 05/18/17 Unknown History Donepezil [Aricept] 10 mg PO QDAY 05/18/17 05/18/17 Unknown History Rivastigmine [Rivastigmine Patch 1 each TRANSDERMA DAILY 05/18/17 05/18/17 Unknown History 13.3mg/24hr] levoFLOXacin [Levaquin TAB] 500 mg PO Q24HR #7 tablet 05/24/17 Unknown Rx Active Meds: Active Medications Acetaminophen (Tylenol) 650 mg PO Q4H PRN PRN Reason: Pain MILD(1-3)/Fever >100.5/BRITO Albuterol (Proventil) 2.5 mg IH Q4HRT PRN PRN Reason: Shortness Of Breath Donepezil HCl (Aricept) 10 mg PO QDAY [facility] Last Admin: 07/31/19 09:40 Dose: 10 mg Documented by: Heparin Sodium (Porcine) (Heparin) 5,000 unit SUB-Q Q12HR [facility] Last Admin: 07/31/19 09:40 Dose: 5,000 unit Documented by: Hydralazine HCl (Apresoline) 10 mg IV Q4HR PRN PRN Reason: Hypertension Levofloxacin/Dextrose (Levaquin 500mg/100ml) 500 mg in 100 mls @ 100 mls/hr IV Q24HR [facility]; Protocol Last Infusion: 07/31/19 12:08 Dose: Infused Documented by: Lisinopril (Zestril) 40 mg PO QDAY [facility] Last Admin: 07/31/19 09:40 Dose: 40 mg Documented by: Metoprolol Tartrate (Lopressor) 100 mg PO DAILY [facility] Last Admin: 07/31/19 09:39 Dose: 100 mg Documented by: Miscellaneous Medication (Rivastigmine [Rivastigmine Patch 13.3mg/24hr]) 1 each TRANSDERMA DAILY [facility] Ondansetron HCl (Zofran) 4 mg IV Q8H PRN PRN Reason: Nausea And Vomiting Pravastatin Sodium (Pravachol) 40 mg PO QHS [facility] Last Admin: 07/30/19 23:17 Dose: 40 mg Documented by: Sodium Chloride (Sodium Chloride Flush Syringe 10 Ml) 10 ml IV BID [facility] Last Admin: 07/31/19 09:40 Dose: 10 ml Documented by: Sodium Chloride (Sodium Chloride Flush Syringe 10 Ml) 10 ml IV PRN PRN PRN Reason: LINE FLUSH Mental Status Exam - Vital signs Last Vital Signs Temp 98.8 F 07/31/19 14:38 Pulse 67 07/31/19 14:38 Resp 20 07/31/19 14:38 BP 103/43 07/31/19 14:38 Pulse Ox 93 07/31/19 14:38 - Exam Narrative exam: Mental Status Exam Appearance: anxious, bilateral wrist restraints Behavior: poor eye contact Speech: regular rate and tone Mood: agitated Affect: labile Thought Process: disorganized Thought Content: unable to assess Motor Activity: laying in bed Cognition: A/O x 1 (person); confused Insight: poor Judgment: poor Results Result Diagrams: 07/31/19 05:36 07/31/19 05:36 Abnormal lab results 07/30/19 07/31/19 07/31/19 Range/Units 21:10 05:36 05:36 Lymph % (Auto) 12.7 L (13.4-35.0) % Seg Neutrophils % 80.0 H (40.0-70.0) % Seg Neutrophils # 8.4 H (1.8-7.7) K/mm3 Total Protein (6.3-8.2) g/dL Albumin 3.5 L (3.9-5) g/dL TSH 4.220 H (0.270-4.200) mlU/mL 07/31/19 Range/Units 13:27 Lymph % (Auto) (13.4-35.0) % Seg Neutrophils % (40.0-70.0) % Seg Neutrophils # (1.8-7.7) K/mm3 Total Protein 6.1 L (6.3-8.2) g/dL Albumin 3.2 L (3.9-5) g/dL TSH (0.270-4.200) mlU/mL All other labs normal. Assessment and Plan Assessment and plan: Impression: Hx dementia with behavioral disturbances. Today the patient is anxious and confused during the assessment. Responses to questions are inappropriate. Provider unable to assess patient secondary to confusion. Recommendation/Plan: 1. Will reassess in 24 hours. 2. Will attempt to gain collateral to determine proper disposition. 3. Start Aricept 5 mg po QHS memory. Attempted to discuss possible side effects such as GI disturbances. 4. Consult- Case Mgmt informed, the patient may need assistance with placement when discharged. Disposition: Will reassess in [address] Abebe Baron.
[2019-07-31] MEDS ORDERED: DONEPEZIL 5 MG TAB PO SCH (22:00)
[2019-07-31] MEDS: PRAVASTATIN 40 MG TAB PO SCH (22:39)
[2019-08-01] MEDS: METOPROLOL TARTRATE 100 MG TAB PO SCH (09:45)
[2019-08-01] MEDS: DONEPEZIL 10 MG TAB PO SCH (09:45)
[2019-08-01] MEDS: LISINOPRIL 40 MG TAB PO SCH (09:47)
[2019-08-01] MEDS: HEPARIN 5,000 UNIT/1 ML VIAL SUB-Q SCH ×2 (09:47→21:04)
[2019-08-01] MEDS ORDERED: levoFLOXacin 500 MG TAB PO SCH (10:00)
--- NOTE | 2019-08-01 11:19 | Progress Note ---
Subjective - Reason for Consult Consult date: 08/01/19 Reason for consult: Psychiatry Follow-up - Chief Complaint Chief complaint: "I am okay" 84 year old white male that presents to the emergency room with altered mental states. Today the patient was calm, but confused during the assessment. He could not answer any questions logically when asked. Per the staff, the patient is sleeping at night. The patient wasn't in restraints. No gestures of Si/HI's. Mental Status Exam - Vital signs Last Vital Signs Temp 97.8 F 08/01/19 07:14 Pulse 76 08/01/19 09:45 Resp 20 08/01/19 07:14 BP 109/54 08/01/19 09:45 Pulse Ox 96 08/01/19 07:14 - Exam Narrative exam: Unable to complete the MSE because of his condition. Assessment and Plan Impression: Unspecified Neuro Cog DO. Today the patient was calm, but confused during the assessment.The patient isn't in restraints. DDx: Dementia, R/O Delirium Recommend/Plan: Start Namenda 5 mg PO daily for dementia symptoms. gather collateral information to see if the patient has a psychiatrist for outpatient psy services. Recommend Delirium precautions below: 1. Frequently reorient patient and involve him/her in their care (simple explanations of procedures, tests, medications). 2. Lights on and shades open during daytime hours. 3. Write date and goals of care in a visible place. 4. Try to avoid unnecessary interruptions to sleep during nighttime hours. 5. Obtain glasses, hearing aids from home if patient uses these at baseline. 6. Avoid medications that may exacerbate delirium (especially narcotics, benzodiazepines, barbiturates, ambien, lunesta, and medications with excessive anticholinergic properties). Dispo: The patient pending SNF placement. Will staff with Dr Abebe Baron.
[2019-08-01] MEDS ORDERED: LORazepam 2 MG/ML VIAL IM ONE (14:20)
--- NOTE | 2019-08-01 14:38 | Progress Note ---
Assessment and Plan Assessment and plan: 84 YO male with HTN, CVA, Dementia, CAD S/P CABG, HLD, Debility presents to ED for evaluation. Pt states is confused, and lethargic and unable to provide history. Pt history provided by friend who is at bedside during exam and interview. As per friend, the patient has become increasing weak and confused over the past 6 months with progressively worsening symptoms over the past 2 weeks. Pt currently requires 6/6 assistance with activities of daily living. Pt is bedbound, nonambulatory, and incontinent of bowel and bladder. Pt is unable to feed himself. Pt was found outside his home today lying in the yard with only a Tshirt on. EMS notified by the neighbor, and upon arrival the patient was found to be in distress. Pt transported to [facility]. Pt seen and evaluated in ED and found to have Encephalopathy, SIRS, and Debility. Pt admitted to [facility] and treated with IV antibiotic therapy and supportive care. Case management consulted for discharge planning. No further history obtainable. Prior admission on 05/18/17 reviewed. * Per family quit etoh many years ago * Ambulates with Walker at home * Per family Friend, for the past 3 months, mental status had gotten worse, patient lives with daughter in-law, (Son that is incarcerated and will be home in 7 weeks) patient has not been taken his medicine for dementia and also on meds for prior Heart attack and will throw away. He also has been found wo ndering, falling down and be brought home. He has not been making any sense in the last 3 months, and has also been using the bathroom in his pants. Hypoxia. SIRS Without Organ dysfunction Hypertension ?Dehydration- Found outside Metabolic Encephalopathy ?progression of Dementia Dementia Debility Osteoarthritis CAD s/p CABG per History Plan Supportive care Patient appears to have progressive Dementia and at this point is much for family to handle. Neurology work up for completion Psych evaluation noted, Continue Namenda as started by them Family to bring in all home meds to restart Case management consult for possible placement Home o2 prior eval prior to discharge DVT/GI prophy Fall precaution History Interval history: Patient seen and examined, Remains confused, Now off restraints. Still not coherent, no new information available. Intermittent agitation Hospitalist Physical - Physical exam Narrative exam: General appearance: Present: mild distress, disheveled, - EENT Eyes: Present: miosis ENT: hearing decreased - Neck Neck: Present: supple, normal ROM - Respiratory Respiratory: bilateral: diminished, rhonchi - Cardiovascular Heart Sounds: Present: S1 & S2. Absent: rub, click - Extremities Extremities: pulses symmetrical, No edema Peripheral Pulses: within normal limits - Abdominal General gastrointestinal: Present: soft, non-tender, non-distended, normal bowel sounds Male genitourinary: Present: normal - Integumentary Integumentary: Present: clear, dry, decreased turgor - Musculoskeletal Musculoskeletal: generalized weakness - Psychiatric Psychiatric: Alterned mental status, unable to assess affect, no intact judgment & insight, no memory intact - Neurologic Neurologic: moves all extremities, Altered mentation, no evidence of focal weakness, no gait normal - Constitutional Vitals: Temp Pulse Resp BP Pulse Ox 97.4 F L 58 L 20 131/67 95 08/01/19 13:59 08/01/19 13:59 08/01/19 13:59 08/01/19 13:59 08/01/19 13:59 General appearance: Present: mild distress, disheveled, malodorous Results - Labs CBC & Chem 7: 07/31/19 05:36 07/31/19 05:36 Labs: Laboratory Last Values WBC 10.5 K/mm3 (4.5-11.0) 07/31/19 05:36 RBC 4.39 M/mm3 (3.65-5.03) 07/31/19 05:36 Hgb 13.9 gm/dl (11.8-15.2) 07/31/19 05:36 Hct 41.5 % (35.5-45.6) 07/31/19 05:36 MCV 94 fl (84-94) 07/31/19 05:36 MCH 32 pg (28-32) 07/31/19 05:36 MCHC 34 % (32-34) 07/31/19 05:36 RDW 13.7 % (13.2-15.2) 07/31/19 05:36 Plt Count 192 K/mm3 (140-440) 07/31/19 05:36 Lymph % (Auto) 12.7 % (13.4-35.0) L 07/31/19 05:36 [place] % (Auto) 6.2 % (0.0-7.3) 07/31/19 05:36 Eos % (Auto) 0.6 % (0.0-4.3) 07/31/19 05:36 Baso % (Auto) 0.5 % (0.0-1.8) 07/31/19 05:36 Lymph # 1.3 K/mm3 (1.2-5.4) 07/31/19 05:36 [place] # 0.7 K/mm3 (0.0-0.8) 07/31/19 05:36 Eos # 0.1 K/mm3 (0.0-0.4) 07/31/19 05:36 Baso # 0.0 K/mm3 (0.0-0.1) 07/31/19 05:36 Seg Neutrophils % 80.0 % (40.0-70.0) H 07/31/19 05:36 Seg Neutrophils # 8.4 K/mm3 (1.8-7.7) H 07/31/19 05:36 POC ABG pH 7.430 (7.35-7.45) 07/31/19 20:33 POC ABG pCO2 35.2 (35-45) 07/31/19 20:33 POC ABG pO2 75 (80-105) L 07/31/19 20:33 POC ABG HCO3 23.3 (22-26 mml/L) 07/31/19 20:33 POC ABG Total CO2 24 (23-27mmol/L) 07/31/19 20:33 POC ABG O2 Sat 95 07/31/19 20:33 POC ABG Base Excess -1 ((-2) - (+3)mmol/L) 07/31/19 20:33 FiO2 21 % 07/31/19 20:33 Sodium 142 mmol/L (137-145) 07/31/19 05:36 Potassium 3.6 mmol/L (3.6-5.0) 07/31/19 05:36 Chloride 103.8 mmol/L (98-107) 07/31/19 05:36 Carbon Dioxide 24 mmol/L (22-30) 07/31/19 05:36 Anion Gap 18 mmol/L 07/31/19 05:36 BUN 12 mg/dL (9-20) 07/31/19 05:36 Creatinine 1.0 mg/dL (0.8-1.5) 07/31/19 05:36 Estimated GFR > 60 ml/min 07/31/19 05:36 BUN/Creatinine Ratio 12 % 07/31/19 05:36 Glucose 93 mg/dL (75-100) 07/31/19 05:36 Calcium 8.6 mg/dL (8.4-10.2) 07/31/19 05:36 Magnesium 1.80 mg/dL (1.7-2.3) 07/31/19 13:27 Total Bilirubin 0.80 mg/dL (0.1-1.2) 07/31/19 13:27 Direct Bilirubin 0.2 mg/dL (0-0.2) 07/31/19 13:27 Indirect Bilirubin 0.6 mg/dL 07/31/19 13:27 AST 26 units/L (5-40) 07/31/19 13:27 ALT 15 units/L (7-56) 07/31/19 13:27 Alkaline Phosphatase 88 units/L (35-129) 07/31/19 13:27 Ammonia 50.0 umol/L (25-60) 07/31/19 13:27 Total Protein 6.1 g/dL (6.3-8.2) L 07/31/19 13:27 Albumin 3.2 g/dL (3.9-5) L 07/31/19 13:27 Albumin/Globulin Ratio 1.1 % 07/31/19 13:27 TSH 4.220 mlU/mL (0.270-4.200) H 07/30/19 21:10 Free T4 1.23 ng/dL (0.76-1.46) 07/30/19 21:10 Urine Color Yellow (Yellow) 07/30/19 12:41 Urine Turbidity Clear (Clear) 07/30/19 12:41 Urine pH 5.0 (5.0-7.0) 07/30/19 12:41 Ur Specific [place] 1.016 (1.003-1.030) 07/30/19 12:41 Urine Protein 30 mg/dl mg/dL (Negative) 07/30/19 12:41 Urine Glucose (UA) Neg mg/dL (Negative) 07/30/19 12:41 Urine Ketones 20 mg/dL (Negative) 07/30/19 12:41 Urine Blood Sm (Negative) 07/30/19 12:41 Urine Nitrite Neg (Negative) 07/30/19 12:41 Urine Bilirubin Neg (Negative) 07/30/19 12:41 Urine Urobilinogen < 2.0 mg/dL (<2.0) 07/30/19 12:41 Ur Leukocyte Esterase Neg (Negative) 07/30/19 12:41 Urine WBC (Auto) 1.0 /HPF (0.0-6.0) 07/30/19 12:41 Urine RBC (Auto) 1.0 /HPF (0.0-6.0) 07/30/19 12:41 U Epithel Cells (Auto) 1.0 /HPF (0-13.0) 07/30/19 12:41 Urine Bacteria (Auto) 1+ /HPF (Negative) 07/30/19 12:41 Urine Mucus Few /HPF 07/30/19 12:41 Urine Opiates Screen Presumptive negative 07/30/19 12:41 Urine Methadone Screen Presumptive negative 07/30/19 12:41 Ur Barbiturates Screen Presumptive negative 07/30/19 12:41 Ur Phencyclidine Scrn Presumptive negative 07/30/19 12:41 Ur Amphetamines Screen Presumptive negative 07/30/19 12:41 U Benzodiazepines Scrn Presumptive negative 07/30/19 12:41 Urine Cocaine Screen Presumptive negative 07/30/19 12:41 U Marijuana (THC) Screen Presumptive negative 07/30/19 12:41 Drugs of Abuse Note Disclamer 07/30/19 12:41 Active Medications - Current Medications Current Medications: Generic Name Dose Route Start Last Admin Trade Name Freq PRN Reason Stop Dose Admin Acetaminophen 650 mg 07/30/19 20:28 Tylenol PO Q4H PRN Pain MILD(1-3)/Fever >100.5/BRITO Albuterol 2.5 mg 07/30/19 20:28 Proventil IH Q4HRT PRN Shortness Of Breath Heparin Sodium (Porcine) 5,000 unit 07/30/19 22:00 08/01/19 09:47 Heparin SUB-Q 5,000 unit Q12HR SHAUN Administration Hydralazine HCl 10 mg 07/31/19 12:30 Apresoline IV Q4HR PRN Hypertension Levofloxacin/Dextrose 500 mg in 100 mls @ 100 mls/hr 07/31/19 10:00 08/01/19 09:52 Levaquin 500mg/100ml IV 100 mls/hr Q24HR SHAUN Administration Protocol Lisinopril 40 mg 07/31/19 10:00 08/01/19 09:47 Zestril PO Not Given QDAY SHAUN Memantine 5 mg 08/02/19 10:00 Namenda PO QDAY SHAUN Metoprolol Tartrate 100 mg 07/31/19 10:00 08/01/19 09:45 Lopressor PO 100 mg DAILY SHAUN Administration Miscellaneous Medication 1 each 07/31/19 10:00 Rivastigmine [Rivastigmine Patch 13.3mg/24hr] TRANSDERMA DAILY SHAUN Ondansetron HCl 4 mg 07/30/19 20:28 Zofran IV Q8H PRN Nausea And Vomiting Pravastatin Sodium 40 mg 07/30/19 22:00 07/31/19 22:39 Pravachol PO 40 mg QHS SHAUN Administration Sodium Chloride 10 ml 07/30/19 22:00 08/01/19 09:47 Sodium Chloride Flush Syringe 10 Ml IV 10 ml BID SHAUN Administration Sodium Chloride 10 ml 07/30/19 20:28 Sodium Chloride Flush Syringe 10 Ml IV PRN PRN LINE FLUSH Nutrition/Malnutrition Assess - Dietary Evaluation Nutrition/Malnutrition Findings: Nutrition Notes Start: 07/31/19 09:53 Freq: Status: Active Protocol: Document 08/01/19 09:50 RS (Rec: 08/01/19 10:25 RS [id number]) Co-Sign 08/01/19 09:50 Nutrition Notes Initial or Follow up Reassessment Current Diagnosis Coronary Artery Disease, Hypertension,Stroke Other Pertinent Diagnosis Dementia, HLD, Debility, Encephalopathy, SIRS, wounds Current Diet Regular diet Labs/Tests Reviewed Pertinent Medications Reviewed Height 6 ft 2 in Weight 86 kg [place] Body Weight (kg) 86.36 BMI 24.3 Subjective/Other Information F/U for intake. Pt disoriented and nonresponsive to dietary questions. Observed pt ate 0% of breakfast. No reports from nurse/tech regarding dinner PO intake. Nurse reccomended ONS for pt. Percent of energy/protein needs met: 0%/0% Burn Absent Trauma Absent #2 Nutrition Diagnosis Inadequate energy intake Etiology dementia As Evidenced by Signs and Symptoms pt disoriented during mealtimes, poor appetite #1 Nutrition Diagnosis Predicted suboptimal energy intake Etiology dementia, debility, missing teeth Diagnosis Progress(for reassessment Resolved documentation) Is patient on ventilator? No Is Patient Ambulatory and/or Out of Bed No REE-([facility]-confined to bed) [phone] Calculation Used for Recommendations [facility] Additional Notes PRO: 108-129g/day (1.25-1.5g/ kg/day) Fluid: 1mL/kcal Nutrition Intervention Change Diet Order: Continue diet Add Supplement/Snack (indicate name/kcal Ensure Enlive Vanilla BID /protein ) Provides kCal: 700 Provides Protein (gm) 40 Goal #1 Meet 75% of kcal/PRO needs via PO and ONS intake Anticipated Discharge Needs: Unable to determine at this time Follow-Up By: 08/05/19 Additional Comments F/U for PO intake and ONS tolerance
--- NOTE | 2019-08-01 15:45 | Consultation ---
Past History Past Medical History: arthritis, CAD, hypertension, hyperlipidemia, stroke, other (Dementia) Past Surgical History: CABG Social history: single. denies: smoking, alcohol abuse, prescription drug abuse Family history: hypertension Medications and Allergies Allergies Allergy/AdvReac Type Severity Reaction Status Date / Time No Known Allergies Allergy Verified 07/30/19 14:32 Home Medications Medication Instructions Recorded Confirmed Last Taken Type Benazepril HCl [Lotensin] 40 mg PO DAILY 09/03/14 07/31/19 Unknown History Metoprolol [Lopressor TAB] 100 mg PO DAILY 09/03/14 07/31/19 Unknown History Simvastatin (Nf) [Zocor TAB] 20 mg PO QHS 09/03/14 07/31/19 Unknown History Donepezil [Aricept] 10 mg PO QDAY 05/18/17 07/31/19 Unknown History Rivastigmine [Rivastigmine Patch 1 each TRANSDERMA DAILY 05/18/17 07/31/19 Unknown History 13.3mg/24hr] levoFLOXacin [Levaquin TAB] 500 mg PO Q24HR #7 tablet 05/24/17 07/31/19 Unknown Rx Active Meds: Active Medications Acetaminophen (Tylenol) 650 mg PO Q4H PRN PRN Reason: Pain MILD(1-3)/Fever >100.5/BRITO Albuterol (Proventil) 2.5 mg IH Q4HRT PRN PRN Reason: Shortness Of Breath Heparin Sodium (Porcine) (Heparin) 5,000 unit SUB-Q Q12HR [facility] Last Admin: 08/01/19 09:47 Dose: 5,000 unit Documented by: Hydralazine HCl (Apresoline) 10 mg IV Q4HR PRN PRN Reason: Hypertension Levofloxacin/Dextrose (Levaquin 500mg/100ml) 500 mg in 100 mls @ 100 mls/hr IV Q24HR [facility]; Protocol Last Admin: 08/01/19 09:52 Dose: 100 mls/hr Documented by: Lisinopril (Zestril) 40 mg PO QDAY [facility] Last Admin: 08/01/19 09:47 Dose: Not Given Documented by: Memantine (Namenda) 5 mg PO QDAY [facility] Metoprolol Tartrate (Lopressor) 100 mg PO DAILY [facility] Last Admin: 08/01/19 09:45 Dose: 100 mg Documented by: Miscellaneous Medication (Rivastigmine [Rivastigmine Patch 13.3mg/24hr]) 1 each TRANSDERMA DAILY [facility] Ondansetron HCl (Zofran) 4 mg IV Q8H PRN PRN Reason: Nausea And Vomiting Pravastatin Sodium (Pravachol) 40 mg PO QHS [facility] Last Admin: 07/31/19 22:39 Dose: 40 mg Documented by: Sodium Chloride (Sodium Chloride Flush Syringe 10 Ml) 10 ml IV BID [facility] Last Admin: 08/01/19 09:47 Dose: 10 ml Documented by: Sodium Chloride (Sodium Chloride Flush Syringe 10 Ml) 10 ml IV PRN PRN PRN Reason: LINE FLUSH Physical Examination - Vital Signs Vital Signs: Vital Signs Temp Pulse Resp BP Pulse Ox 99.0 F 86 14 197/84 98 07/30/19 10:41 07/30/19 10:41 07/30/19 10:41 07/30/19 10:41 07/30/19 10:41 Results - Laboratory Findings CBC and BMP: 07/31/19 05:36 07/31/19 05:36 Abnormal Lab Findings: Abnormal Labs 07/30/19 07/30/19 07/30/19 21:10 Unknown Unknown WBC 13.5 H Lymph % (Auto) 8.0 L Lymph # 1.1 L Seg Neutrophils % 85.9 H Seg Neutrophils # 11.6 H POC ABG pO2 Glucose 125 H Total Protein Albumin TSH 4.220 H 07/31/19 07/31/19 07/31/19 05:36 05:36 13:27 WBC Lymph % (Auto) 12.7 L Lymph # Seg Neutrophils % 80.0 H Seg Neutrophils # 8.4 H POC ABG pO2 Glucose Total Protein 6.1 L Albumin 3.5 L 3.2 L TSH 07/31/19 20:33 WBC Lymph % (Auto) Lymph # Seg Neutrophils % Seg Neutrophils # POC ABG pO2 75 L Glucose Total Protein Albumin TSH Assessment and Plan 84 YR OLD MALE WITH HIST OF HTN,CAD,STATUS POST CABG, HYPER. LIPEDEMIA AND DEMENTIA WHOSE CONDITION HAS BEEN DETERIORATING AND DETERIORATED RAPIDLY IN LAST TWO WEEKS. PATIENT LIVES AT HOME UNABLE TO SELF CARE AND TAKEN CARE OF BY FRIENDS AND NEIGHBOUR, VERY RECENTLY PATIENT STARTED DEFECATING AND URINATING ALL OVER IN THE HOUSE. AND HAS BEEN INCREASINGLY CONFUSED. PATIENT WAS FOUND LYING IN THE YARD WEARING ONLY T SHIRT, NEIGHBOUR CALLED EMS AND HE WAS BROUGHT TO THE ER. UPON ADMISSION HE WAS FOUND TO HAVE EVIDENCE OF INFECTION WITH INCREASED WBC AND INCREASED NEUTROPHIL COUNT, NO EVIDENCE OF UTI,CT SCAN SHOWED ADVANCED ATROPHY, PHYSICAL EXAMINATION- PATIENT IS ALERT AND AWAKE, COULD ONLY TELL HIS NAME, COULD NOT TELL HIS AGE APPROPRIATELY, HE STATED HE WAS 68 WHEN HE WAS ACTUALLY 84. COULD NOT ANSWER ANY OTHER QUESTIONS ,TALKS INCOHERENTLY,MAKES EYE CONTACT,FOLLOWS SIMPLE COMMAND AT TIMES AND AT TIMES DRIFTS OUT OF REALITY, HEART-NORMAL RATE AND RHYTHM CAROTIDS- BOTH PALPABLE, CRANIAL NERVES -ALL WITH IN NORMAL LIMIT WITH IN LIMITATION OF EXAMINATION, PUPILS REACT TO LIGHT.EXTRA OCULAR MOVEMENT IS INTACT. MOVES ALL FOUR EXTREMITIES,DETAILED MOTOR TESTING WAS NOT POSSIBLE DUE HIS CURRENT MENTAL STATUS REFLEXES- ALL WITH IN NORMAL LIMIT AND THERE WAS NO ASYMMETRY OF REFLEXES. SENSORY- GROSSLY WITH IN NORMAL LIMIT, IMPRESSION, 1. ACUTE ENCEPHALOPATHY IN A BACK GROUND OF ADVANCED DEMENTIA DUE CONCURRENT INFECTION. RECOMMEND.1. PLEASE START HIM ON ARICEPT 10 MG QD AND ALSO NAMENDA 10 MG QD 2, CONTINUE ANTIBIOTIC AND LOOK FOR SOURCE OF INFECTION FOR APPROPRIATE INFECTION CONTROL
[2019-08-01] MEDS: PRAVASTATIN 40 MG TAB PO SCH (21:03)
[2019-08-02] MEDS: HEPARIN 5,000 UNIT/1 ML VIAL SUB-Q SCH (09:04)
[2019-08-02] MEDS: METOPROLOL TARTRATE 100 MG TAB PO SCH (09:08)
--- NOTE | 2019-08-02 09:46 | Discharge Summary ---
Providers - Providers Date of Admission: 07/30/19 20:28 Date of discharge: 08/02/19 Attending physician: DAVIS LOPEZ 07/30/19 14:47 Consult to Case Management [CONS] Urgent Services Needed at Discharge: Fabrication Technician Notified:: y 07/31/19 09:26 Physical Therapy Evaluation and Treat [CONS] Routine Comment: Reason For Exam: Weakness 07/31/19 12:29 Occupational Therapy Evaluate and Treat [CONS] Routine Comment: Reason For Exam: ataxia 08/01/19 08:49 Consult to Physician [CONS] Routine Comment: Consulting Provider: BREE HOPPER Physician Instructions: Reason For Exam: AMS 08/01/19 14:44 Consult to Case Management [CONS] Routine Services Needed at Discharge: Fabrication Technician Additional Physician Instructions: PLACEMENT [facility] Hospital[facility] Condition: Stable Hospital course: 84 YO male with HTN, CVA, Dementia, CAD S/P CABG, HLD, Debility presents to ED for evaluation. Pt states is confused, and lethargic and unable to provide history. Pt history provided by friend who is at bedside during exam and interview. As per friend, the patient has become increasing weak and confused over the past 6 months with progressively worsening symptoms over the past 2 weeks. Pt currently requires 6/6 assistance with activities of daily living. Pt is bedbound, nonambulatory, and incontinent of bowel and bladder. Pt is unable to feed himself. Pt was found outside his home today lying in the yard with only a Tshirt on. EMS notified by the neighbor, and upon arrival the patient was found to be in distress. Pt transported to [facility]. Pt seen and evaluated in ED and found to have Encephalopathy, SIRS, and Debility. Pt admitted to [facility] and treated with IV antibiotic therapy and supportive care. Case management consulted for discharge planning. No further history obtainable. Prior admission on 05/18/17 reviewed. * Per family quit etoh many years ago * Ambulates with Walker at home * Per family Friend, for the past 3 months, mental status had gotten worse, patient lives with daughter in-law, (Son that is incarcerated and will be home in 7 weeks) patient has not been taken his medicine for dementia and also on meds for prior Heart attack and will throw away. He also has been found wondering, falling down and be brought home. He has not been making any sense in the last 3 months, and has also been using the bathroom in his pants. Needed SNF placement which was arranged for today. Hypoxia --Improved SIRS Without Organ dysfunction--resolved Hypertension--Under control--BP 127/64 ?Dehydration- Impproved Metabolic Encephalopathy -resolved,Sitting in chair and eating by himself Dementia--On Namenda Debility--pT/OT Osteoarthritis---Symptomatic treatment CAD s/p CABG per History Plan Supportive care Patient appears to have progressive Dementia and at this point is much for family to handle --SNF placement Neurology work up for completion Psych evaluation noted, Continue Namenda as started by them Family to bring in all home meds to restart Case management consult for possible placement Home o2 prior eval prior to discharge---No need for O2 Fall precautions Disposition: [id number]-[id number] SNF W [facility] CERT Core Measure Documentation - Palliative Care Palliative Care/ Comfort Measures: Not Applicable - Core Measures Any of the following diagnoses?: none Exam - Constitutional Vitals: Temp Pulse Resp BP Pulse Ox 97.7 F 76 18 127/64 97 08/02/19 07:13 08/02/19 08:18 08/02/19 07:13 08/02/19 07:13 08/02/19 09:19 General appearance: Present: no acute distress, well-nourished - EENT Eyes: Present: PERRL ENT: hearing intact, clear oral mucosa - Neck Neck: Present: supple, normal ROM - Respiratory Respiratory effort: normal Respiratory: bilateral: CTA - Cardiovascular Heart rate: 78 Rhythm: regular Heart Sounds: Present: S1 & S2. Absent: rub, click - Extremities Extremities: no ischemia, pulses intact, pulses symmetrical, No edema Peripheral Pulses: within normal limits - Abdominal General gastrointestinal: Present: soft, non-tender, non-distended, normal bowel sounds Male genitourinary: Present: normal - Integumentary Integumentary: Present: clear, warm, dry - Musculoskeletal Musculoskeletal: gait normal, strength equal bilaterally - Psychiatric Psychiatric: appropriate mood/affect, intact judgment & insight - Neurologic Neurologic: CNII-XII intact, moves all extremities - Allied Health Allied health notes reviewed: nursing, case management Plan Weight Bearing Status: Weight Bear as Tolerated Diet: low fat, low salt Durable Medical Equipment Needed Upon Discharge: Walker-Rolling Follow up with: JL PORTER MD [Staff Physician] - 7 Days
[2019-08-02] MEDS ORDERED: MEMANTINE 5 MG TAB PO SCH (10:00)
[2019-08-02] MEDS: LISINOPRIL 40 MG TAB PO SCH (10:14)
--- NOTE | 2019-08-02 13:38 | Progress Note ---
Subjective - Reason for Consult Consult date: 08/02/19 Reason for consult: Psychiatry Follow-up - Chief Complaint Chief complaint: "Hello" 84 year old white male that presents to the emergency room with altered mental states. Today the patient was calm, but still confused during the assessment. He was placed near the nurses station for safety. He was pleasant throughout the assessment. His answers to all questions were not logical. Per the staff, the patient is pending discharged today for SNF placement. No gestures of SI/HI's. Mental Status Exam - Vital signs Last Vital Signs Temp 97.7 F 08/02/19 07:13 Pulse 76 08/02/19 10:00 Resp 16 08/02/19 10:00 BP 127/64 08/02/19 07:13 Pulse Ox 97 08/02/19 10:00 - Exam Narrative exam: Unable to complete the MSE because of his condition. Assessment and Plan Impression: Unspecified Neuro Cog DO. Today the patient was calm, but still conf used during the assessment.The patient isn't in restraints. DDx: Dementia, R/O Delirium Recommend/Plan: Continue Namenda 5 mg PO daily for dementia symptoms. Recommend Delirium precautions below: 1. Frequently reorient patient and involve him/her in their care (simple explanations of procedures, tests, medications). 2. Lights on and shades open during daytime hours. 3. Write date and goals of care in a visible place. 4. Try to avoid unnecessary interruptions to sleep during nighttime hours. 5. Obtain glasses, hearing aids from home if patient uses these at baseline. 6. Avoid medications that may exacerbate delirium (especially narcotics, benzodiazepines, barbiturates, ambien, lunesta, and medications with excessive anticholinergic properties). Dispo: The patient is pending discharge to s SNF today. Will staff with Dr Abebe Baron.
[2019-08-02 14:29] VITALS: BP 100/50
== END 2019-08-02 15:00 | DRG 71 ==
LOC: ED 10:12 → 2B-ACE 20:28
PROVIDERS: ADMIT Internal Medicine; ATTEND Internal Medicine
PROC: 4A033R1 Measurement of Arterial Saturation, Peripheral, Percutaneous Approach (ICD-10-PCS; principal; 2019-07-31)
DX: G93.41 Metabolic encephalopathy (principal); R65.10 Systemic inflammatory response syndrome (SIRS) of non-infectious origin without acute organ dysfunction; F01.51 Vascular dementia, unspecified severity, with behavioral disturbance; R53.81 Other malaise; R09.02 Hypoxemia; R41.9 Unspecified symptoms and signs involving cognitive functions and awareness; I10 Essential (primary) hypertension; I25.10 Atherosclerotic heart disease of native coronary artery without angina pectoris; E86.0 Dehydration; M19.90 Unspecified osteoarthritis, unspecified site; Z86.73 Personal history of transient ischemic attack (TIA), and cerebral infarction without residual deficits; Z95.1 Presence of aortocoronary bypass graft; Z74.01 Bed confinement status; Z82.49 Family history of ischemic heart disease and other diseases of the circulatory system; Z79.899 Other long term (current) drug therapy
CPT/HCPCS: 36415; 36600; 70450; 71045; 80048; 80053; 80076; 80307; 81001; 82140; 82803; 83735; 84439; 84443; 85025; 93005; 93010; 94760; G0378; A9270-GY; J0696; J1200; J1644; J1956; J2060; J3411; J3486; J7030

== ENCOUNTER 2020-04-12 09:31 | Inpatient (IN) | payer MEDICARE ==
[2020-04-12 10:27] LABS: Bilirubin,Urine NEG (Negative); Blood,Urine SM (Negative); Color,Urine Yellow (Yellow); Hyaline Casts,Urine 2 /LPF; Mucus,Urine FEW /HPF; Urobilinogen,Urine < 2.0 mg/dL (<2.0)
[2020-04-12 10:35] LABS: Basophils % (Auto) 0.3 % (0.0-1.8); Hematocrit 44.7 % (35.5-45.6); Hemoglobin 15.5 gm/dl (11.8-15.2); Lymphocytes # (Auto) 0.9 K/mm3 (1.2-5.4); Lymphocytes % (Auto) 8.2 % (13.4-35.0); Mean Corpuscular HGB Conc 35 % (32-34); Mean Corpuscular Volume 93 fl (84-94); Monocytes # (Auto) 0.7 K/mm3 (0.0-0.8); Monocytes % (Auto) 6.2 % (0.0-7.3); Platelet Count 219 K/mm3 (140-440); Red Blood Count 4.82 M/mm3 (3.65-5.03); Red Cell Distribution Width 14.6 % (13.2-15.2)
[2020-04-12] MEDS ORDERED: SODIUM CHLORIDE 0.9% 1000 ML 1,000 ML IV ONE ×2 (10:43→13:23)
[2020-04-12] MEDS ORDERED: LORazepam 2 MG/ML VIAL IV ONE (10:43)
--- NOTE | 2020-04-12 10:44 | Emergency Department Report ---
HPI - General Chief Complaint: Altered Mental Status Time Seen by Provider: 04/12/20 10:02 - HPI HPI: 84-year-old male presents to the emergency department via EMS after he was found wandering around outside by PD. Allegedly the patient has been missing for the past 24 hours, however we do not know where the patient lives, or have EMS knows he has been missing. Patient has been here previously and appears to have a medical history that includes hypertension, CVA, dementia and the patient has had a previous small bowel obstruction. He also has a history of coronary artery disease with previous bypass. He is currently a poor historian secondary to his medical condition. ED Past Medical Hx - Past Medical History Hx Hypertension: Yes Hx CVA: Yes Hx Renal Disease: Yes Hx Dementia: Yes Additional medical history: high cholesterol, history of recurrent gouty arthritis - Surgical History Hx Open Heart Surgery: Yes (CARDIAC BY PASS TRIPPLE BYPASS HX) - Social History Smoking Status: Unknown if ever smoked Substance Use Type: None - Medications Home Medications: Home Medications Medication Instructions Recorded Confirmed Last Taken Type Rivastigmine [Rivastigmine Patch 1 each TRANSDERMA DAILY 05/18/17 04/12/20 Unknown History 13.3mg/24hr] levoFLOXacin [Levaquin TAB] 500 mg PO Q24HR #7 tablet 05/24/17 04/12/20 Unknown Rx Memantine 5 mg PO QDAY #30 tablet 08/02/19 04/12/20 Unknown Rx Metoprolol [Lopressor TAB] 25 mg PO DAILY #30 08/02/19 04/12/20 Unknown Rx donepeziL [Aricept] 10 mg PO QDAY #30 08/02/19 04/12/20 Unknown Rx lisinopriL [Zestril TAB] 40 mg PO QDAY #30 tablet 08/02/19 04/12/20 Unknown Rx ED Review of Systems ROS: Stated complaint: AMS Other details as noted in HPI Comment: Unobtainable due to pts medical conditions Physical Exam - Physical Exam Vital Signs: Vital Signs 04/12/20 04/12/20 04/12/20 09:38 09:39 09:41 Temperature Pulse Rate Respiratory Rate Blood Pressure O2 Sat by Pulse 76 L 100 99 Oximetry 04/12/20 04/12/20 04/12/20 09:43 09:45 09:47 Temperature Pulse Rate 85 79 90 Respiratory 17 8 L 17 Rate Blood Pressure O2 Sat by Pulse 100 100 93 Oximetry 04/12/20 04/12/20 04/12/20 09:49 09:51 09:53 Temperature Pulse Rate 84 97 H 76 Respiratory 8 L 10 L 11 L Rate Blood Pressure O2 Sat by Pulse 99 96 100 Oximetry 04/12/20 04/12/20 04/12/20 09:55 10:01 10:05 Temperature 98.1 F Pulse Rate 87 80 95 H Respiratory 8 L 11 L 10 L Rate Blood Pressure O2 Sat by Pulse 99 100 99 Oximetry 04/12/20 04/12/20 04/12/20 10:11 10:15 10:21 Temperature Pulse Rate 84 80 79 Respiratory 11 L 12 9 L Rate Blood Pressure 133/64 133/64 O2 Sat by Pulse 98 99 99 Oximetry 04/12/20 04/12/20 04/12/20 10:25 10:31 10:35 Temperature Pulse Rate 80 90 81 Respiratory 14 11 L 7 L Rate Blood Pressure 133/64 133/64 122/56 O2 Sat by Pulse 99 98 97 Oximetry Physical Exam: GENERAL: The patient is well-developed well-nourished. HENT: Normocephalic. Atraumatic. Patient has moist mucous membranes. EYES: Extraocular motions are intact. Pupils equal reactive to light bilaterally. NECK: Supple. Trachea is midline. CHEST/LUNGS: Clear to auscultation. There is no respiratory distress noted. HEART/CARDIOVASCULAR: Regular. There is no tachycardia. There is no murmur. ABDOMEN: Abdomen is soft, nontender. Patient has normal bowel sounds. SKIN: Skin is warm and dry. NEURO: The patient is awake but otherwise is nonverbal. Not following commands. Withdraws from painful stimuli. MUSCULOSKELETAL: There is no obvious deformity. ED Course Vital Signs 04/12/20 04/12/20 04/12/20 09:38 09:39 09:41 Temperature Pulse Rate Respiratory Rate Blood Pressure O2 Sat by Pulse 76 L 100 99 Oximetry 04/12/20 04/12/20 04/12/20 09:43 09:45 09:47 Temperature Pulse Rate 85 79 90 Respiratory 17 8 L 17 Rate Blood Pressure O2 Sat by Pulse 100 100 93 Oximetry 04/12/20 04/12/20 04/12/20 09:49 09:51 09:53 Temperature Pulse Rate 84 97 H 76 Respiratory 8 L 10 L 11 L Rate Blood Pressure O2 Sat by Pulse 99 96 100 Oximetry 04/12/20 04/12/20 04/12/20 09:55 10:01 10:05 Temperature 98.1 F Pulse Rate 87 80 95 H Respiratory 8 L 11 L 10 L Rate Blood Pressure O2 Sat by Pulse 99 100 99 Oximetry 04/12/20 04/12/20 04/12/20 10:11 10:15 10:21 Temperature Pulse Rate 84 80 79 Respiratory 11 L 12 9 L Rate Blood Pressure 133/64 133/64 O2 Sat by Pulse 98 99 99 Oximetry 04/12/20 04/12/20 04/12/20 10:25 10:31 10:35 Temperature Pulse Rate 80 90 81 Respiratory 14 11 L 7 L Rate Blood Pressure 133/64 133/64 122/56 O2 Sat by Pulse 99 98 97 Oximetry ED Medical Decision Making - Lab Data Result diagrams: 04/12/20 10:04 04/12/20 10:04 - EKG Data -: EKG Interpreted by Me EKG shows normal: sinus rhythm (Appears irregular but there is a lot of artifact), axis, intervals, QRS complexes (Right bundle branch block), ST-T waves Rate: normal - EKG Data When compared to previous EKG there are: no significant change Interpretation: unchanged when compared t (04/12/20) - Radiology Data Radiology results: report reviewed, image reviewed interpreted by me: Chest x-ray does not show any acute process. There are no pleural effusions, obvious pneumonia and there is no pneumothorax. NONENHANCED CT SCAN OF THE HEAD: INDICATION / CLINICAL INFORMATION: 84 years Male; Altered mental status. TECHNIQUE: Routine CT head without contrast. All CT scans at this location are performed using CT dose reduction for ALARA by means of automated exposure control. COMPARISON: CT scan of the head from 07/30/2019 and 03/19/2019 FINDINGS: BRAIN / INTRACRANIAL CONTENTS: No acute hemorrhage, mass effect, midline shift, hydrocephalus, or acute, large territorial infarct. Is seen in the last CT scan, patchy areas of moderate cortical involution seen. This remains unchanged. Periventricular and deep hemispheric white matter are relatively normal CRANIOCERVICAL JUNCTION: No significant abnormality. ORBITS: No significant abnormality of visualized orbits. SINUSES / MASTOIDS: No significant abnormality of the visualized paranasal sinuses or mastoid air cells. ADDITIONAL FINDINGS: None. IMPRESSION: No acute parenchymal lesion in the brain CT findings remain unchanged Exam: CT cervical spine History: AMS, fall; Technique: Contiguous thin cut axial images obtained through the cervical spine. Sagittal and coronal reconstructions performed by the technologist. All CT scans at this location are performed using CT dose reduction for ALARA by means of automated exposure control. Findings: No priors. There is no evidence of fracture or traumatic subluxation. Vertebral bodies: No fracture is seen in the cervical spine. Prevertebral space is normal. Transverse images, no fracture is seen involving the bony canal. Disc spaces: At C3-C4 disc level, facet joint hypertrophic changes are seen on the right side more than the left. Uncovertebral joint hypertrophy is seen. Neuroforamina are narrowed. Disc osteophyte complex is seen at C4-C5 extending bilaterally more to the left side. Left neuroforamen is narrowed. Disc osteophyte complex is seen at C5-C6 disc level attending laterally bilaterally. Both neuroforamina are narrowed. Shallow disc osteophyte complex is seen at C6-C7 level. Cystic changes are seen at C6 and C7 vertebral bodies. These appear to be benign. This could be degenerative cysts. Well defined focal opacity is seen in the apex of the right lung, suspicious for malignancy. Please obtain dedicated CT scan of the chest. Along the posterior wall of the supraglottic larynx, there appears to be retention of mucosa trapped air bubbles. Since this lesion. Calcification is seen in the left carotid bifurcation. Impression: No sequela from the trauma in the cervical spine Right apical lung lesions is suggestive of tumor; please obtain dedicated CT scan of the chest - Medical Decision Making This patient was brought in with altered mental status after he was found wandering on nearby streets. It turns out that the patient has been missing for the past 24 hours after he left from his son's house. The patient has dementia. On examination the patient is awake but otherwise is confused. At times he is agitated and aggressive towards staff. He was given some Ativan which helped with this and allowed us to continue his examination. A CT scan of the head did not show any bleed, shift, mass, ischemia, or any other acute process. CT of the cervical spine also did not show any fracture, subluxation or any acute process. His labs show a acute renal failure, dehydration Patient will be admitted to the hospital for further evaluation and treatment, and was accepted for admission by the hospitalist, Dr Parsons. Critical Care Time: No Critical care attestation.: If time is entered above; I have spent that time in minutes in the direct care of this critically ill patient, excluding procedure time. ED Disposition Clinical Impression: AZUL (acute kidney injury), Metabolic encephalopathy Rhabdomyolysis Qualifiers: Encounter type: initial encounter Vascular dementia Qualifiers: Dementia behavioral disturbance: without behavioral disturbance Qualified Code(s): F01.50 - Vascular dementia without behavioral disturbance Disposition: DC-09 OP ADMIT IP TO THIS HOSP Is pt being admited?: Yes Condition: Serious Time of Disposition: 17:35
[2020-04-12 10:57] LABS: Calcium 9.8 mg/dL (8.4-10.2)
--- NOTE | 2020-04-12 11:22 | XRay Report ---
CHEST 1 VIEW INDICATION: Altered mental status. COMPARISON: 07/30/2019 FINDINGS: SUPPORT DEVICES: None. HEART: Old CABG change again noted with normal heart size. LUNGS/PLEURA: No acute air space or interstitial disease. ADDITIONAL FINDINGS: None. IMPRESSION: 1. No acute findings. Signer Name: Bobby Kamara MD Signed: 04/12/2020 11:18 AM Workstation Name: [id number]
--- NOTE | 2020-04-12 11:55 | Cat Scan Report ---
NONENHANCED CT SCAN OF THE HEAD: INDICATION / CLINICAL INFORMATION: 84 years Male; Altered mental status. TECHNIQUE: Routine CT head without contrast. All CT scans at this location are performed using CT dos e reduction for ALARA by means of automated exposure control. COMPARISON: CT scan of the head from 07/30/2019 and 03/19/2019 FINDINGS: BRAIN / INTRACRANIAL CONTENTS: No acute hemorrhage, mass effect, midline shift, hydrocephalus, or ac [place], large territorial infarct. Is seen in the last CT scan, patchy areas of moderate cortical involu tion seen. This remains unchanged. Periventricular and deep hemispheric white matter are relatively n ormal CRANIOCERVICAL JUNCTION: No significant abnormality. ORBITS: No significant abnormality of visualized orbits. SINUSES / MASTOIDS: No significant abnormality of the visualized paranasal sinuses or mastoid air gege ls. ADDITIONAL FINDINGS: None. IMPRESSION: No acute parenchymal lesion in the brain CT findings remain unchanged Signer Name: Tree Izquierdo MD Signed: 04/12/2020 11:51 AM Workstation Name: [id number]
--- NOTE | 2020-04-12 12:20 | Cat Scan Report ---
Exam: CT cervical spine History: AMS, fall; Technique: Contiguous thin cut axial images obtained through the cervical spine. Sagittal and mary l reconstructions performed by the technologist. All CT scans at this location are performed using CT dose reduction for ALARA by means of automated exposure control. Findings: No priors. There is no evidence of fracture or traumatic subluxation. Vertebral bodies: No fracture is seen in the cervical spine. Prevertebral space is normal. Transverse images, no fracture is seen involving the bony canal. Disc spaces: At C3-C4 disc level, facet joint hypertrophic changes are seen on the right side more th an the left. Uncovertebral joint hypertrophy is seen. Neuroforamina are narrowed. Disc osteophyte complex is seen at C4-C5 extending bilaterally more to the left side. Left neuroforam en is narrowed. Disc osteophyte complex is seen at C5-C6 disc level attending laterally bilaterally. Both neuroforami na are narrowed. Shallow disc osteophyte complex is seen at C6-C7 level. Cystic changes are seen at C6 and C7 vertebra l bodies. These appear to be benign. This could be degenerative cysts. Well defined focal opacity is seen in the apex of the right lung, suspicious for malignancy. Please o btain dedicated CT scan of the chest. Along the posterior wall of the supraglottic larynx, there appears to be retention of mucosa trapped air bubbles. Since this lesion. Calcification is seen in the left carotid bifurcation. Impression: No sequela from the trauma in the cervical spine Right apical lung lesions is suggestive of tumor; please obtain dedicated CT scan of the chest Signer Name: Tree Izquierdo MD Signed: 04/12/2020 12:15 PM Workstation Name: [id number]
[2020-04-12] MEDS ORDERED: ACETAMINOPHEN 325 MG TAB PO PRN (13:29)
[2020-04-12] MEDS ORDERED: ONDANSETRON 4 MG/2 ML INJ IV PRN (13:29)
[2020-04-12] MEDS ORDERED: SODIUM CHLORIDE 0.9% 1000 ML 1,000 ML IV SCH (13:30)
--- NOTE | 2020-04-12 13:41 | History and Physical Report ---
History of Present Illness Chief complaint: He is confused and was wandering the streets History of present illness: 84 YO Male with Vascular Dementia, Cerebral Atherosclerosis, HTN, CVA, CAD S/P CABG, HLD, OA, Obesity presents to ED for evaluation. Patient is confused, encephalopathic and is unable to provide history at the time of my evaluation. Patient history taken from EMS staff, ED staff, medical record and law enforcement officers. As per staff, the patient was found wandering the streets. Patient was confused, disheveled and unable to provide information regarding his residence as per law enforcement. EMS was notified and upon arrival the patient was found to be in distress and subsequently transported to [facility] for further evaluation and care. Patient seen and evaluated in the emergency department. Lab and imaging studies reviewed. Patient found to have acute kidney injury with acute tubular necrosis, metabolic encephalopathy, as well as rhabdomyolysis. Patient admitted to medical floor due to increased risk of decompensation. Patient treated with IV fluid resuscitation therapy, and sup portive care. Nephrology team consulted in ED. No further history is obtainable. Prior admission on 07/30/2019 has been reviewed. All medication listed, and at time of admission has been reconciled. Advanced care planning conducted in the emergency department. Past History Past Medical History: arthritis, CAD, hypertension, stroke, other (See HPI) Past Surgical History: CABG Social history: . denies: smoking, alcohol abuse, prescription drug abuse Family history: hypertension Medications and Allergies Allergies Allergy/AdvReac Type Severity Reaction Status Date / Time No Known Allergies Allergy Verified 07/30/19 14:32 Home Medications Medication Instructions Recorded Confirmed Last Taken Type Rivastigmine [Rivastigmine Patch 1 each TRANSDERMA DAILY 05/18/17 04/12/20 Unknown History 13.3mg/24hr] levoFLOXacin [Levaquin TAB] 500 mg PO Q24HR #7 tablet 05/24/17 04/12/20 Unknown Rx Memantine 5 mg PO QDAY #30 tablet 08/02/19 04/12/20 Unknown Rx Metoprolol [Lopressor TAB] 25 mg PO DAILY #30 08/02/19 04/12/20 Unknown Rx donepeziL [Aricept] 10 mg PO QDAY #30 08/02/19 04/12/20 Unknown Rx lisinopriL [Zestril TAB] 40 mg PO QDAY #30 tablet 08/02/19 04/12/20 Unknown Rx Active Meds: Active Medications Acetaminophen (Tylenol) 650 mg PO Q4H PRN PRN Reason: Pain MILD(1-3)/Fever >100.5/BRITO Sodium Chloride (Nacl 0.9% 1000 Ml) 1,000 mls @ 125 mls/hr IV ONCE ONE Stop: 04/12/20 18:42 Last Admin: 04/12/20 11:43 Dose: 125 mls/hr Documented by: Sodium Chloride (Nacl 0.9% 1000 Ml) 1,000 mls @ 999 mls/hr IV BOLUS ONE Stop: 04/12/20 14:23 Sodium Chloride (Nacl 0.9% 1000 Ml) 1,000 mls @ 100 mls/hr IV DIRECT SHAUN Ondansetron HCl (Zofran) 4 mg IV Q8H PRN PRN Reason: Nausea And Vomiting Sodium Chloride (Sodium Chloride Flush Syringe 10 Ml) 10 ml IV BID SHAUN Sodium Chloride (Sodium Chloride Flush Syringe 10 Ml) 10 ml IV PRN PRN PRN Reason: LINE FLUSH Review of Systems ROS unobtainable: due to mental status Exam - Constitutional Vitals: Temp Pulse Resp BP Pulse Ox 98.1 F 81 11 L 131/50 100 04/12/20 09:55 04/12/20 13:01 04/12/20 13:01 04/12/20 13:01 04/12/20 13:01 General appearance: Present: mild distress, obese, disheveled - EENT Eyes: Present: PERRL ENT: hearing intact, clear oral mucosa, hearing decreased - Neck Neck: Present: supple, normal ROM - Respiratory Respiratory effort: normal Respiratory: bilateral: CTA - Cardiovascular Heart Sounds: Present: S1 & S2. Absent: rub, click - Extremities Extremities: pulses symmetrical, No edema Peripheral Pulses: within normal limits - Abdominal General gastrointestinal: Present: soft, non-tender, non-distended, normal bowel sounds Male genitourinary: Present: normal - Integumentary Integumentary: Present: dry, clammy, decreased turgor - Musculoskeletal Musculoskeletal: generalized weakness - Psychiatric Psychiatric: no appropriate mood/affect, no intact judgment & insight, no memory intact - Neurologic Neurologic: CNII-XII intact, no focal deficits, moves all extremities, gait normal HEART Score - HEART Score Troponin: Troponin T < 0.010 ng/mL (0.00-0.029) 04/12/20 11:57 Results - Labs CBC & Chem 7: 04/12/20 10:04 04/12/20 10:04 Labs: Abnormal lab results 04/12/20 04/12/20 04/12/20 Range/Units 10:04 10:04 11:57 Hgb 15.5 H (11.8-15.2) gm/dl MCHC 35 H (32-34) % Lymph % (Auto) 8.2 L (13.4-35.0) % Lymph # 0.9 L (1.2-5.4) K/mm3 Seg Neutrophils % 85.3 H (40.0-70.0) % Seg Neutrophils # 9.4 H (1.8-7.7) K/mm3 Sodium 147 H (137-145) mmol/L BUN 52 H (9-20) mg/dL Creatinine 1.9 H (0.8-1.5) mg/dL Glucose 139 H (75-100) mg/dL Ammonia 15.0 L (25-60) umol/L Total Creatine Kinase (55-170) units/L 04/12/20 Range/Units 11:57 Hgb (11.8-15.2) gm/dl MCHC (32-34) % Lymph % (Auto) (13.4-35.0) % Lymph # (1.2-5.4) K/mm3 Seg Neutrophils % (40.0-70.0) % Seg Neutrophils # (1.8-7.7) K/mm3 Sodium (137-145) mmol/L BUN (9-20) mg/dL Creatinine (0.8-1.5) mg/dL Glucose (75-100) mg/dL Ammonia (25-60) umol/L Total Creatine Kinase 2611 H (55-170) units/L Assessment and Plan - Patient Problems (1) Acute kidney injury (AZUL) with acute tubular necrosis (ATN) Current Visit: Yes Status: Acute Plan to address problem: IV fluid resuscitation therapy, BMP, repeat BMP in a.m. to monitor serum creatinine, monitor urine output every shift, avoid nephrotoxic agents. Nephrology team consulted. (2) Metabolic encephalopathy Current Visit: Yes Status: Acute Plan to address problem: CT head, neuro check, CBC, CMP, neuro check, aspiration precautions, IV fluid resuscitation therapy., Thyroid panel. (3) Rhabdomyolysis Current Visit: Yes Status: Acute Qualifiers: Encounter type: initial encounter Plan to address problem: CK level, IV fluid resuscitation therapy, BMP, repeat BMP in a.m., repeat CK level in a.m., monitor urine output every shift. Nephrology team consulted (4) Vascular dementia Current Visit: Yes Status: Acute Qualifiers: Dementia behavioral disturbance: without behavioral disturbance Qualified C ode(s): F01.50 - Vascular dementia without behavioral disturbance Plan to address problem: Ativan as needed, supportive care, fall precautions, neuro checks. (5) Hypertension Current Visit: Yes Status: Acute Qualifiers: Hypertension type: essential hypertension Qualified Code(s): I10 - Essential (primary) hypertension Plan to address problem: Monitor blood pressure every shift, continue medical management. (6) Coronary artery disease Current Visit: Yes Status: Acute Qualifiers: Associated angina: without angina Plan to address problem: Risk factor reduction, low-fat, low-cholesterol diet, lipid panel, statin therapy as clinically indicated. (7) Osteoarthritis Current Visit: Yes Status: Acute Plan to address problem: Pain control, supportive care. (8) DVT prophylaxis Current Visit: Yes Status: Acute Plan to address problem: SCD to bilateral lower extremities while in bed, patient is ambulatory (9) Advance care planning Current Visit: Yes Status: Acute Plan to address problem: Disease education conducted, patient is full code, patient family knowledges understanding and agreement with care plan as well as disease progression, +30 minutes.
[2020-04-12 14:23] LABS: INR 1.1 (0.87-1.13)
[2020-04-12 14:24] LABS: Partial Thromboplastin Time 28.7 Sec. (24.2-36.6)
[2020-04-12 14:30] LABS: Free T4 (Free Thyroxine) 1.19 ng/dL (0.76-1.46)
[2020-04-13 05:53] LABS: Basophils % (Auto) 0.4 % (0.0-1.8); Eosinophils # (Auto) 0.1 K/mm3 (0.0-0.4); Hematocrit 43.3 % (35.5-45.6); Hemoglobin 14.3 gm/dl (11.8-15.2); Lymphocytes # (Auto) 1.7 K/mm3 (1.2-5.4); Lymphocytes % (Auto) 17.1 % (13.4-35.0); Mean Corpuscular HGB Conc 33 % (32-34); Mean Corpuscular Volume 93 fl (84-94); Monocytes # (Auto) 0.9 K/mm3 (0.0-0.8); Platelet Count 206 K/mm3 (140-440); Red Blood Count 4.65 M/mm3 (3.65-5.03); Red Cell Distribution Width 14.3 % (13.2-15.2)
[2020-04-13 06:07] LABS: Calcium 9.4 mg/dL (8.4-10.2)
--- NOTE | 2020-04-13 09:36 | Progress Note ---
Subjective Date of service: 04/13/20 Objective - Vital Signs Vital signs: Vital Signs - 12hr 04/12/20 04/13/20 23:00 09:03 Temperature 97.6 F Pulse Rate 51 L Respiratory 20 Rate Blood Pressure 141/74 [Left] O2 Sat by Pulse 100 100 Oximetry - Lab 04/13/20 05:01 04/13/20 05:01 Most recent lab results Calcium 9.4 mg/dL (8.4-10.2) 04/13/20 05:01 Medications & Allergies - Medications Allergies/Adverse Reactions: Allergies No Known Allergies Allergy (Verified 07/30/19 14:32) Home Medications: Home Medications Medication Instructions Recorded Confirmed Last Taken Type Rivastigmine [Rivastigmine Patch 1 each TRANSDERMA DAILY 05/18/17 04/12/20 Unknown History 13.3mg/24hr] levoFLOXacin [Levaquin TAB] 500 mg PO Q24HR #7 tablet 05/24/17 04/12/20 Unknown Rx Memantine 5 mg PO QDAY #30 tablet 08/02/19 04/12/20 Unknown Rx Metoprolol [Lopressor TAB] 25 mg PO DAILY #30 08/02/19 04/12/20 Unknown Rx donepeziL [Aricept] 10 mg PO QDAY #30 08/02/19 04/12/20 Unknown Rx lisinopriL [Zestril TAB] 40 mg PO QDAY #30 tablet 08/02/19 04/12/20 Unknown Rx Active Medications: Generic Name Dose Route Start Last Admin Trade Name Freq PRN Reason Stop Dose Admin Acetaminophen 650 mg 04/12/20 13:29 Tylenol PO Q4H PRN Pain MILD(1-3)/Fever >100.5/BRITO Donepezil HCl 10 mg 04/13/20 10:00 Aricept PO QDAY SHAUN Dextrose/Sodium Chloride 1,000 mls @ 75 mls/hr 04/13/20 10:00 D5/0.45ns IV DIRECT SHAUN Levofloxacin 500 mg 04/13/20 10:00 Levaquin PO Q24HR SHAUN Memantine 5 mg 04/13/20 10:00 Memantine PO QDAY SHAUN Metoprolol Tartrate 25 mg 04/13/20 10:00 Metoprolol PO DAILY SHAUN Miscellaneous Medication 1 each 04/13/20 10:00 Rivastigmine [Rivastigmine Patch 13.3mg/24hr] TRANSDERMA DAILY SHAUN Ondansetron HCl 4 mg 04/12/20 13:29 Zofran IV Q8H PRN Nausea And Vomiting Sodium Chloride 10 ml 04/12/20 22:00 04/12/20 22:24 Sodium Chloride Flush Syringe 10 Ml IV 10 ml BID SHAUN Administration Sodium Chloride 10 ml 04/12/20 13:29 Sodium Chloride Flush Syringe 10 Ml IV PRN PRN LINE FLUSH
--- NOTE | 2020-04-13 09:45 | Consultation ---
History of Present Illness - Reason for Consult Consult date: 04/13/20 acute renal failure - History of Present Illness The patient is a 84 YO male with history significant for HTN, HLd, Vascular Dementia, Cerebral Atherosclerosis, CVA, CAD S/P CABG, OA and Obesity who presented to [facility] ED after he was found wandering the streets. Patient is encephalopathic and is unable to provide history at the time of my evaluation. Information was obtained form prior documentation. In the ED patient was found to have acute kidney injury, metabolic encephalopathy and rhabdomyolysis. Patient admitted to medical floor for further evaluation. Labs significant for creat 1.9, BUN 52, CK 2611 and Sodium 147. Nephrology was consulted for further evaluation. Past History Past Medical History: arthritis, CAD, hypertension, stroke, other (See HPI) Past Surgical History: CABG Social history: . denies: smoking, alcohol abuse, prescription drug abuse Family history: hypertension Medications and Allergies Allergies Allergy/AdvReac Type Severity Reaction Status Date / Time No Known Allergies Allergy Verified 07/30/19 14:32 Home Medications Medication Instructions Recorded Confirmed Last Taken Type Rivastigmine [Rivastigmine Patch 1 each TRANSDERMA DAILY 05/18/17 04/12/20 Unknown History 13.3mg/24hr] levoFLOXacin [Levaquin TAB] 500 mg PO Q24HR #7 tablet 05/24/17 04/12/20 Unknown Rx Memantine 5 mg PO QDAY #30 tablet 08/02/19 04/12/20 Unknown Rx Metoprolol [Lopressor TAB] 25 mg PO DAILY #30 08/02/19 04/12/20 Unknown Rx donepeziL [Aricept] 10 mg PO QDAY #30 08/02/19 04/12/20 Unknown Rx lisinopriL [Zestril TAB] 40 mg PO QDAY #30 tablet 08/02/19 04/12/20 Unknown Rx Active Meds: Active Medications Acetaminophen (Tylenol) 650 mg PO Q4H PRN PRN Reason: Pain MILD(1-3)/Fever >100.5/BRITO Donepezil HCl (Aricept) 10 mg PO QDAY SHAUN Dextrose/Sodium Chloride (D5/0.45ns) 1,000 mls @ 75 mls/hr IV DIRECT SHAUN Levofloxacin (Levaquin) 500 mg PO Q24HR SHAUN Memantine (Memantine) 5 mg PO QDAY COUNT INCLUDES THE [facility] Metoprolol Tartrate (Metoprolol) 25 mg PO DAILY COUNT INCLUDES THE [facility] Miscellaneous Medication (Rivastigmine [Rivastigmine Patch 13.3mg/24hr]) 1 each TRANSDERMA DAILY COUNT INCLUDES THE [facility] Ondansetron HCl (Zofran) 4 mg IV Q8H PRN PRN Reason: Nausea And Vomiting Sodium Chloride (Sodium Chloride Flush Syringe 10 Ml) 10 ml IV BID COUNT INCLUDES THE [facility] Last Admin: 04/12/20 22:24 Dose: 10 ml Documented by: Sodium Chloride (Sodium Chloride Flush Syringe 10 Ml) 10 ml IV PRN PRN PRN Reason: LINE FLUSH Review of Systems ROS unobtainable: due to mental status Exam - Vital Signs Vital signs: Vital Signs Pulse Ox 76 L 04/12/20 09:38 - General Appearance General appearance: well-developed, well-nourished, appears stated age, other (no distress, on restrains) EENT: ATNC, PERRL Neck: Present: trachea midline Respiratory: Clear to Ascultation Heart: regular, S1S2, no murmurs Gastrointestinal: Present: normoactive bowel sounds. Absent: tenderness, distended Integumentary: no rash, warm and dry Neurologic: other (opens eyes, non-verbal, not following any command) Musculoskeletal: Present: other (no edema) Results - Lab Results 04/13/20 05:01 04/13/20 05:01 Most recent lab results Calcium 9.4 mg/dL (8.4-10.2) 04/13/20 05:01 - Image Kidney/bladder ultrasound: pending Assessment and Plan 1. Acute kidney injury: Vasomotor AZUL in setting of volume depletion. Urine studies and Renal US ordered. Monitor renal function. Creatinine level 1.3 from 1.9. Monitor renal function. Continue IV fluids. Avoid nephrotoxic agents. Meds dosage based on GFR. 2. FEN: Hypernatremia, hypotonic IV fluids, monitor. Volume depletion, IV fluids. Monitor lytes and volume status. 3. Rhabdomyolysis: Continue IV fluids. 4. Metabolic encephalopathy, POA. 5. H/o dementia. 6. HTN.
[2020-04-13] MEDS ORDERED: LISINOPRIL 40 MG TAB PO SCH (10:00)
[2020-04-13] MEDS ORDERED: RIVASTIGMINE TRANSDERMA SCH (10:00)
[2020-04-13] MEDS ORDERED: METOPROLOL TARTRATE 100 MG TAB PO SCH (10:00)
--- NOTE | 2020-04-13 13:33 | Progress Note ---
Assessment and Plan /Acute kidney injury (AZUL) with vasomotor nephropathy likely due to dehydration cont IV fluid resuscitation therapy, repeat BMP in a.m. to monitor serum creatinine, monitor urine output every shift, avoid nephrotoxic agents. Nephrology team following. /Acute Metabolic encephalopathy due to azul and dehydration, along with underlying dementia CT head head without any acute findings, continue neuro check, aspiration precautions, IV fluid resuscitation therapy., Thyroid panel normal / Rhabdomyolysis CK level trending down, continue IV fluid resuscitation therapy, repeat CK level in a.m., monitor urine output every shift. Nephrology team following /Hyponatremia, continue hypotonic fluid, monitor BMP daily / Vascular dementia supportive care, fall precautions, neuro checks. /Hypertension Monitor blood pressure every shift, continue medical management. Hydralazine IV as needed / Coronary artery disease status post CABG Risk factor reduction, low-fat, low-cholesterol diet, aspirin, statin therapy as clinically indicated. / Osteoarthritis Pain control as needed, supportive care. / DVT prophylaxis SCD to bilateral lower extremities while in bed / Advance care planning patient is full code, patient family knowledges understanding and agreement with care plan as well as disease progression, +30 minutes. 04/13/20. Creatinine trended down to 1.3, sodium 150, CK 2342. Continue hypotonic fluid, patient remained very agitated and confused, continue restrain for now. Brief History: The patient is a 84 YO male with history significant for HTN, HLd, Vascular Dementia, CVA, CAD S/P CABG, OA and Obesity who presented to [facility] ED after he was found wandering the streets. In the ED patient was found to have acute kidney injury- Cr1.9, metabolic encephalopathy, hypernatremia -Na 147 and rhabdomyolysis-CK 2611. Patient admitted to medical floor for further evaluation. Nephrology was consulted for further evaluation. Physical exam: General appearance: well-developed, well-nourished, appears stated age, other (no distress, on restrains) EENT: ATNC, PERRL Neck: Present: trachea midline Respiratory: Clear to Ascultation Heart: regular, S1S2, no murmurs Gastrointestinal: Present: normoactive bowel sounds. Absent: tenderness, distended Integumentary: no rash, warm and dry Neurologic: other (opens eyes, non-verbal, not following any command) Musculoskeletal: Present: other (no edema) Subjective Date of service: 04/13/20 Interval history: Patient seen and examined. Medical records and medication list reviewed. No acute event overnight noted by the RN. Patient remains very confused and agitated, restrained on place Discussed plan of care at bedside with patient's RN. Objective - Constitutional Vitals: Vital Signs - 12hr 04/13/20 04/13/20 09:03 12:59 Temperature 97.9 F Pulse Rate 102 H Respiratory 20 Rate Blood Pressure 141/60 O2 Sat by Pulse 100 97 Oximetry - Labs CBC & Chem 7: 04/13/20 05:01 04/15/20 05:12 Labs: Abnormal lab results 04/13/20 04/13/20 04/13/20 Range/Units 05:01 05:01 12:55 Gibson % (Auto) 9.0 H (0.0-7.3) % Gibson # 0.9 H (0.0-0.8) K/mm3 Seg Neutrophils % 72.5 H (40.0-70.0) % Sodium 150 H (137-145) mmol/L Chloride 110.5 H (98-107) mmol/L BUN 40 H (9-20) mg/dL Glucose 109 H (75-100) mg/dL POC Glucose 115 H (70-105) AST 62 H (5-40) units/L Total Creatine Kinase 2342 H (55-170) units/L HEART Score - HEART Score Troponin: Troponin T < 0.010 ng/mL (0.00-0.029) 04/12/20 11:57
[2020-04-13] MEDS: D5W/0.45% NACL 1,000 ML IV SCH (14:04)
[2020-04-13] MEDS: MEMANTINE 5 MG TAB PO SCH (14:08)
[2020-04-13] MEDS: DONEPEZIL 10 MG TAB PO SCH (14:08)
[2020-04-13] MEDS: levoFLOXacin 500 MG TAB PO SCH (14:09)
[2020-04-13] MEDS: METOPROLOL TARTRATE 25 MG TAB PO SCH (14:23)
[2020-04-13] MEDS: HALOPERIDOL LACTATE 5 MG/1 ML INJ IM PRN (17:46)
--- NOTE | 2020-04-13 19:10 | Ultrasound Report ---
ULTRASOUND RENAL INDICATION: Acute renal failure.. COMPARISON: No relevant prior imaging study available. FINDINGS: RIGHT KIDNEY: Size: 12.5 cm. Echogenicity: Normal. Cortical thickness: 1.4 cm. Hydronephrosis: None. Cyst or mass: None. Stones: Small echogenic foci may be small stones.. LEFT KIDNEY: Size: 9.6 cm. Echogenicity: Normal. Cortical thickness: 1.2 cm. Hydronephrosis: None. Cyst or mass: 3.4 x 2.7 x 2.2 cm cyst in the upper pole with smaller 1.2 cm cyst in the upper pole as well.. Stones: None. Urinary Bladder: No significant abnormality. Free Fluid: None. Additional Findings: None. IMPRESSION 1. No acute sonographic abnormality of the kidneys. Incidental findings as described. Signer Name: Walter Moya MD Signed: 04/13/2020 7:06 PM Workstation Name: [id number]
[2020-04-14 00:12] LABS: Creatinine,Urine 121.5 mg/dL (0.1-20.0)
[2020-04-14 00:17] LABS: Amphetamine Screen,Urine PRESUMPTIVE NEGATIVE; Benzodiazepines Screen,Urine PRESUMPTIVE NEGATIVE; Cannabinoid Screen,Urine PRESUMPTIVE NEGATIVE; Cocaine Screen,Urine PRESUMPTIVE NEGATIVE; Methadone Screen,Urine PRESUMPTIVE NEGATIVE; Opiate Screen,Urine PRESUMPTIVE NEGATIVE
[2020-04-14] MEDS: D5W/0.45% NACL 1,000 ML IV SCH (05:26)
[2020-04-14 08:39] LABS: Calcium 8.8 mg/dL (8.4-10.2)
[2020-04-14] MEDS: MEMANTINE 5 MG TAB PO SCH (09:59)
[2020-04-14] MEDS: DONEPEZIL 10 MG TAB PO SCH (09:59)
[2020-04-14] MEDS: METOPROLOL TARTRATE 25 MG TAB PO SCH (09:59)
[2020-04-14] MEDS: levoFLOXacin 500 MG TAB PO SCH (10:00)
[2020-04-14] MEDS: HALOPERIDOL LACTATE 5 MG/1 ML INJ IM PRN ×2 (13:44→21:45)
--- NOTE | 2020-04-14 14:24 | Progress Note ---
Assessment and Plan 1. Acute kidney injury: Vasomotor AZUL in setting of volume depletion. Urine studies and Renal US ordered. Monitor renal function. Creatinine level 1.3 from 1.3 from 1.9. Monitor renal function. Continue IV fluids. Avoid nephrotoxic agents. Meds dosage based on GFR. 2. FEN: Hypernatremia, hypotonic IV fluids, monitor. Volume depletion, IV fluids. Monitor lytes and volume status. 3. Rhabdomyolysis: Improving. Continue IV fluids. 4. Metabolic encephalopathy, POA. 5. H/o dementia. 6. HTN. Subjective: Patient was seen and examined at the bedside. Remain on restrains. - General Appearance General appearance: well-developed, appears stated age, no distress, on restrains, dry mucus membrane HEENT: ATNC, PERRL Neck: trachea midline Respiratory: Clear to Ascultation Heart: regular, S1S2, no murmurs Gastrointestinal: soft, normoactive bowel sounds, not tender Integumentary: no rash, warm and dry Neurologic: alert, non-verbal, not following any command Ext: no edema Subjective Date of service: 04/14/20 Objective - Vital Signs Vital signs: Vital Signs - 12hr 04/14/20 04/14/20 04/14/20 04:57 10:56 12:16 Temperature 98.9 F 98.7 F Pulse Rate 59 L 62 Respiratory 16 20 Rate Blood Pressure 129/56 144/71 O2 Sat by Pulse 99 Oximetry - Lab 04/13/20 05:01 04/14/20 07:35 Most recent lab results Calcium 8.8 mg/dL (8.4-10.2) 04/14/20 07:35 Phosphorus 2.80 mg/dL (2.5-4.5) 04/14/20 07:35 Magnesium 2.40 mg/dL (1.7-2.3) H 04/14/20 07:35 Urine Creatinine 121.5 mg/dL (0.1-20.0) H 04/13/20 22:20 Urine Sodium 81 mmol/L 04/13/20 22:20 Medications & Allergies - Medications Allergies/Adverse Reactions: Allergies No Known Allergies Allergy (Verified 07/30/19 14:32) Home Medications: Home Medications Medication Instructions Recorded Confirmed Last Taken Type Rivastigmine [Rivastigmine Patch 1 each TRANSDERMA DAILY 05/18/17 04/12/20 Unknown History 13.3mg/24hr] levoFLOXacin [Levaquin TAB] 500 mg PO Q24HR #7 tablet 05/24/17 04/12/20 Unknown Rx Memantine 5 mg PO QDAY #30 tablet 08/02/19 04/12/20 Unknown Rx Metoprolol [Lopressor TAB] 25 mg PO DAILY #30 08/02/19 04/12/20 Unknown Rx donepeziL [Aricept] 10 mg PO QDAY #30 08/02/19 04/12/20 Unknown Rx lisinopriL [Zestril TAB] 40 mg PO QDAY #30 tablet 08/02/19 04/12/20 Unknown Rx Active Medications: Generic Name Dose Route Start Last Admin Trade Name Freq PRN Reason Stop Dose Admin Acetaminophen 650 mg 04/12/20 13:29 Tylenol PO Q4H PRN Pain MILD(1-3)/Fever >100.5/BRITO Donepezil HCl 10 mg 04/13/20 10:00 04/14/20 09:59 Aricept PO 10 mg QDAY SHAUN Administration Haloperidol Lactate 5 mg 04/13/20 17:34 04/14/20 13:44 Haldol IM 5 mg Q8H PRN Administration Agitation Dextrose/Sodium Chloride 1,000 mls @ 75 mls/hr 04/13/20 10:00 04/14/20 05:26 D5/0.45ns IV 75 mls/hr DIRECT SHAUN Administration Memantine 5 mg 04/13/20 10:00 04/14/20 09:59 Memantine PO 5 mg QDAY SHAUN Administration Metoprolol Tartrate 25 mg 04/13/20 15:00 04/14/20 09:59 Metoprolol PO 25 mg DAILY SHAUN Administration Miscellaneous Medication 1 each 04/13/20 10:00 Rivastigmine [Rivastigmine Patch 13.3mg/24hr] TRANSDERMA DAILY SHAUN Ondansetron HCl 4 mg 04/12/20 13:29 Zofran IV Q8H PRN Nausea And Vomiting Sodium Chloride 10 ml 04/12/20 22:00 04/14/20 10:00 Sodium Chloride Flush Syringe 10 Ml IV 10 ml BID SHAUN Administration Sodium Chloride 10 ml 04/12/20 13:29 Sodium Chloride Flush Syringe 10 Ml IV PRN PRN LINE FLUSH
--- NOTE | 2020-04-14 20:08 | Progress Note ---
Assessment and Plan /Acute kidney injury (AZUL) with vasomotor nephropathy likely due to dehydration cont IV fluid resuscitation therapy, repeat BMP in a.m. to monitor serum creatinine, monitor urine output every shift, avoid nephrotoxic agents. Nephrology team following. /Acute Metabolic encephalopathy due to azul and dehydration, along with underlying dementia CT head head without any acute findings, continue neuro check, aspiration precautions, IV fluid resuscitation therapy., Thyroid panel normal / Rhabdomyolysis CK level trending down, continue IV fluid resuscitation therapy, repeat CK level in a.m., monitor urine output every shift. Nephrology team following /Hyponatremia, continue hypotonic fluid, monitor BMP daily / Vascular dementia supportive care, fall precautions, neuro checks. /Hypertension, stable Monitor blood pressure every shift, continue medical management. Hydralazine IV as needed / Coronary artery disease status post CABG Risk factor reduction, low-fat, low-cholesterol diet, aspirin, statin therapy as clinically indicated. / Osteoarthritis Pain control as needed, supportive care. / DVT prophylaxis SCD to bilateral lower extremities while in bed / Advance care planning patient is full code, patient family knowledges understanding and agreement with care plan as well as disease progression, +30 minutes. 04/13/20. Creatinine trended down to 1.3, sodium 150, CK 2342. Continue hypotonic fluid, patient remained very agitated and confused, continue restrain for now. 04/14/20: Creatinine stable, CK trended down to 934, sodium 149. Continue hypotonic fluid, repeat BMP in the morning. Will request product safety lead at the bedside to avoid restrain. Haldol IV as needed for agitation. Will advance diet, order PT eval. if sodium level improves and tolerates regular diet and cleared by PT possible discharge tomorrow Brief History: The patient is a 84 YO male with history significant for HTN, HLd, Vascular Dementia, CVA, CAD S/P CABG, OA and Obesity who presented to [facility] ED after he was found wandering the streets. In the ED patient was found to have acute kidney injury- Cr1.9, metabolic encephalopathy, hypernatremia -Na 147 and rhabdomyolysis-CK 2611. Patient admitted to medical floor for further evaluation. Nephrology was consulted for further evaluation. Physical exam: General appearance: well-developed, well-nourished, appears stated age, other (no distress, on restrains) EENT: ATNC, PERRL Neck: Present: trachea midline Respiratory: Clear to Ascultation Heart: regular, S1S2, no murmurs Gastrointestinal: Present: normoactive bowel sounds. Absent: tenderness, distended Integumentary: no rash, warm and dry Neurologic: other (opens eyes, non-verbal, not following any command) Musculoskeletal: Present: other (no edema) Subjective Date of service: 04/14/20 Interval history: Patient seen and examined. Medical records and medication list reviewed. No acute event overnight noted by the RN. Patient continued to remain very confused and agitated, restrained on place Discussed plan of care at bedside with patient's RN. Sodium level and CK level trending down Objective - Constitutional Vitals: Vital Signs - 12hr 04/14/20 04/14/20 10:56 12:16 Temperature 98.7 F Pulse Rate 62 Respiratory 20 Rate Blood Pressure 144/71 - Labs CBC & Chem 7: 04/13/20 05:01 04/15/20 05:12 Labs: Abnormal lab results 04/13/20 04/14/20 Range/Units 22:20 07:35 Sodium 149 H (137-145) mmol/L Chloride 113.0 H (98-107) mmol/L BUN 35 H (9-20) mg/dL Glucose 124 H (75-100) mg/dL Magnesium 2.40 H (1.7-2.3) mg/dL Total Creatine Kinase 934 H (55-170) units/L Urine Creatinine 121.5 H (0.1-20.0) mg/dL HEART Score - HEART Score Troponin: Troponin T < 0.010 ng/mL (0.00-0.029) 04/12/20 11:57
[2020-04-15 06:08] LABS: Calcium 8.6 mg/dL (8.4-10.2)
[2020-04-15] MEDS: D5W/0.45% NACL 1,000 ML IV SCH (08:10)
[2020-04-15] MEDS: DONEPEZIL 10 MG TAB PO SCH (10:30)
[2020-04-15] MEDS: MEMANTINE 5 MG TAB PO SCH (10:30)
[2020-04-15] MEDS: METOPROLOL TARTRATE 25 MG TAB PO SCH (10:33)
[2020-04-15 10:35] VITALS: BP 116/50
--- NOTE | 2020-04-15 10:36 | Progress Note ---
Assessment and Plan 1. Acute kidney injury: Vasomotor AZUL in setting of volume depletion. Renal US negative for hydro. Monitor renal function. Creatinine level 1.3 from 1.3 from 1.9. Monitor renal function. Continue IV fluids. Avoid nephrotoxic agents. Meds dosage based on GFR. 2. FEN: Hypernatremia, hypotonic IV fluids, monitor. Volume depletion, IV fluids. Monitor lytes and volume status. 3. Rhabdomyolysis: Improving. Continue IV fluids. 4. Metabolic encephalopathy, POA. 5. H/o dementia. 6. HTN. Subjective: Patient was seen and examined at the bedside. Sitter at the bedside. - General Appearance General appearance: well-developed, appears stated age, no distress, on mittens HEENT: ATNC, PERRL Neck: trachea midline Respiratory: Clear to Ascultation Heart: regular, S1S2, no murmur Gastrointestinal: soft, normoactive bowel sounds, not tender Integumentary: no rash, warm and dry Neurologic: alert, confused, follows command Ext: no edema Subjective Date of service: 04/15/20 Objective - Vital Signs Vital signs: Vital Signs - 12hr 04/15/20 04/15/20 04/15/20 05:14 10:31 10:33 Temperature 98.8 F 98.1 F Pulse Rate 61 59 L 66 Respiratory 18 15 Rate Blood Pressure 121/56 116/50 116/50 O2 Sat by Pulse 98 96 Oximetry - Lab 04/13/20 05:01 04/15/20 05:12 Most recent lab results Calcium 8.6 mg/dL (8.4-10.2) 04/15/20 05:12 Phosphorus 2.80 mg/dL (2.5-4.5) 04/14/20 07:35 Magnesium 2.40 mg/dL (1.7-2.3) H 04/14/20 07:35 Urine Creatinine 121.5 mg/dL (0.1-20.0) H 04/13/20 22:20 Urine Sodium 81 mmol/L 04/13/20 22:20 Medications & Allergies - Medications Allergies/Adverse Reactions: Allergies No Known Allergies Allergy (Verified 07/30/19 14:32) Home Medications: Home Medications Medication Instructions Recorded Confirmed Last Taken Type Rivastigmine [Rivastigmine Patch 1 each TRANSDERMA DAILY 05/18/17 04/12/20 Unknown History 13.3mg/24hr] Memantine 5 mg PO QDAY #30 tablet 08/02/19 04/12/20 Unknown Rx Metoprolol [Lopressor TAB] 25 mg PO DAILY #30 08/02/19 04/12/20 Unknown Rx donepeziL [Aricept] 10 mg PO QDAY #30 08/02/19 04/12/20 Unknown Rx Active Medications: Generic Name Dose Route Start Last Admin Trade Name Freq PRN Reason Stop Dose Admin Acetaminophen 650 mg 04/12/20 13:29 Tylenol PO Q4H PRN Pain MILD(1-3)/Fever >100.5/BRITO Donepezil HCl 10 mg 04/13/20 10:00 04/15/20 10:30 Aricept PO 10 mg QDAY SHAUN Administration Haloperidol Lactate 5 mg 04/13/20 17:34 04/14/20 21:45 Haldol IM 5 mg Q8H PRN Administration Agitation Dextrose/Sodium Chloride 1,000 mls @ 75 mls/hr 04/13/20 10:00 04/15/20 08:10 D5/0.45ns IV 75 mls/hr DIRECT SHAUN Administration Memantine 5 mg 04/13/20 10:00 04/15/20 10:30 Memantine PO 5 mg QDAY SHAUN Administration Metoprolol Tartrate 25 mg 04/13/20 15:00 04/15/20 10:33 Metoprolol PO 25 mg DAILY SHAUN Administration Miscellaneous Medication 1 each 04/13/20 10:00 Rivastigmine [Rivastigmine Patch 13.3mg/24hr] TRANSDERMA DAILY SHAUN Ondansetron HCl 4 mg 04/12/20 13:29 Zofran IV Q8H PRN Nausea And Vomiting Sodium Chloride 10 ml 04/12/20 22:00 04/15/20 10:31 Sodium Chloride Flush Syringe 10 Ml IV 10 ml BID SHAUN Administration Sodium Chloride 10 ml 04/12/20 13:29 Sodium Chloride Flush Syringe 10 Ml IV PRN PRN LINE FLUSH
[2020-04-15] MEDS: HALOPERIDOL LACTATE 5 MG/1 ML INJ IM PRN (10:44)
--- NOTE | 2020-04-15 13:21 | Discharge Summary ---
Providers - Providers Date of Admission: 04/12/20 13:29 Date of discharge: 04/15/20 Attending physician: ROSA M CLAYTON 04/12/20 13:29 Consult to Physician [CONS] Routine Comment: CLD OFC 2 ADVOF CONSULT @[id number] LASHAUN W/MARY ANNE Consulting Provider: EVIN PRIETO Physician Instructions: Reason For Exam: rhabdomyolysis/AZUL 04/13/20 19:08 Consult to Wound/ET Nurse [CONS] Routine Reason For Exam: wound eval 04/14/20 11:41 Physical Therapy Evaluation and Treat [CONS] Routine Comment: Reason For Exam: placement [facility] Condition: Serious Pertinent studies: Head CT, cervical spine CT, chest x-ray, renal ultrasound Hospital course: The patient is a 84 YO male with history significant for HTN, HLd, Vascular Dementia, CVA, CAD S/P CABG, OA and Obesity who presented to [facility] ED after he was found wandering the streets. In the ED patient was found to have acute kidney injury- Cr1.9, metabolic encephalopathy, hypernatremia -Na 147 and rhabdomyolysis-CK 2611. Patient admitted to medical floor for further evaluation. Nephrology was consulted for further evaluation. 04/13/20. Creatinine trended down to 1.3, sodium 150, CK 2342. Continue hypotonic fluid, patient remained very agitated and confused, continue restrain for now. 04/14/20: Creatinine stable, CK trended down to 934, sodium 149. Continue hypotonic fluid, repeat BMP in the morning. Will request water safety instructor at the bedside to avoid restrain. Haldol IV as needed for agitation. Will advance diet, order PT eval. if sodium level improves and tolerates regular diet and cleared by PT possible discharge tomorrow 04/15: Clinically stable, sodium 143 today. Discussed plan of care with patient's son Mr. Michi Santamaria. Patient will be discharged home with home health and 22/05 family care. Discharge diagnosis and management: /Acute kidney injury (AZUL) with vasomotor nephropathy likely due to dehydration, monitored with serial BMP, renal function improved with IV fluid Nephrology team consulted for further management and evaluation Renal ultrasound showed left renal cyst and no other acute findings /Acute Metabolic encephalopathy due to azul and dehydration, along with underlying dementia CT head head without any acute findings, Managed with frequent neuro check, aspiration precautions, IV fluid resuscitation therapy, Thyroid panel was normal / Rhabdomyolysis likely due to dehydration CK level trended down with IV fluid and AZUL improved /Hyponatremia, due to dehydration, resolved with hypotonic IV fluid / Vascular dementia Provided supportive care, fall precautions, neuro checks. /Hypertension, stable Monitored blood pressure every shift, continue medical management. Hydralazine IV as needed / Coronary artery disease status post CABG Risk factor reduction with low-fat, low-cholesterol diet, aspirin, statin therapy as clinically indicated. / Osteoarthritis Pain control as needed, supportive care. / DVT prophylaxis SCD to bilateral lower extremities while in bed / Advance care planning patient is full code, patient family knowledges understanding and agreement with care plan as well as disease progression Physical exam: General appearance: well-developed, well-nourished, appears stated age, other (no distress, on restrains) EENT: ATNC, PERRL Neck: Present: trachea midline Respiratory: Clear to Ascultation Heart: regular, S1S2, no murmurs Gastrointestinal: Present: normoactive bowel sounds. Absent: tenderness, distended Integumentary: no rash, warm and dry Neurologic: other (opens eyes, non-verbal, not following any command) Musculoskeletal: Present: other (no edema) Disposition: [id number] HOME UNDER HOME [facility] Time spent for discharge: 34 minutes Core Measure Documentation - Palliative Care Palliative Care/ Comfort Measures: Not Applicable - Core Measures Any of the following diagnoses?: history only Exam - Constitutional Vitals: Temp Pulse Resp BP Pulse Ox 98.1 F 66 15 116/50 96 04/15/20 10:31 04/15/20 10:33 04/15/20 10:31 04/15/20 10:33 04/15/20 10:31 Plan Activity: fall precautions Weight Bearing Status: Non-Weight Bearing Diet: low fat, low salt Additional Instructions: Need 24/7 family supervision Follow up with: ZOHRA PIÑA MD [Primary Care Provider] - 3-5 Days DAVIS LOPEZ MD [Staff Physician] - 7 Days
== END 2020-04-15 17:38 | disposition home health service (06) | DRG 682 ==
LOC: ED 09:31 → 3A 13:29
PROVIDERS: ADMIT Internal Medicine; ATTEND Internal Medicine
DX: N17.0 Acute kidney failure with tubular necrosis (principal); G93.41 Metabolic encephalopathy; M62.82 Rhabdomyolysis; E87.0 Hyperosmolality and hypernatremia; E87.1 Hypo-osmolality and hyponatremia; I10 Essential (primary) hypertension; I25.10 Atherosclerotic heart disease of native coronary artery without angina pectoris; E78.00 Pure hypercholesterolemia, unspecified; F01.50 Vascular dementia, unspecified severity, without behavioral disturbance, psychotic disturbance, mood disturbance, and anxiety; Z95.5 Presence of coronary angioplasty implant and graft; E78.5 Hyperlipidemia, unspecified; M19.90 Unspecified osteoarthritis, unspecified site; E66.9 Obesity, unspecified; Z68.28 Body mass index [BMI] 28.0-28.9, adult; Z82.49 Family history of ischemic heart disease and other diseases of the circulatory system
CPT/HCPCS: 36415; 70450; 71045; 72125; 76770; 80048; 80053; 80307; 80320; 81001; 82140; 82550; 82570; 82962; 83735; 84100; 84300; 84439; 84443; 84484; 85025; 85610; 85730; 93005; 94760; G0378; G0480; J1630; J2060; J7030

== ENCOUNTER 2020-10-24 00:16 | Inpatient (IN) | payer MEDICARE ==
--- NOTE | 2020-10-24 01:50 | XRay Report ---
CHEST 1 VIEW 0122 INDICATION / CLINICAL INFORMATION: AMS COMPARISON: 04/12/2020 FINDINGS: SUPPORT DEVICES: None HEART / MEDIASTINUM: Cardiomegaly and cardiac surgical changes LUNGS / PLEURA: New patchy bilateral pulmonary infiltrates are seen. These are more prominent on the right than left and mostly involve the mid lower lung sands with small amounts of infiltrate in the upper lobes. Linear artifact is seen laterally in the left. No definite pleural effusion is seen. No pneumothorax. ADDITIONAL FINDINGS: No significant additional findings. IMPRESSION: Findings of concern for interstitial pneumonitis bilaterally, certainly which could inclu de viral pneumonitis Signer Name: Edgar Farrar MD Signed: 10/24/2020 1:46 AM Workstation Name: [id number]
[2020-10-24 02:35] LABS: Basophils % (Auto) 0.3 % (0.0-1.8); Eosinophils % (Auto) 0.6 % (0.0-4.3); Hematocrit 37.6 % (35.5-45.6); Hemoglobin 12.8 gm/dl (11.8-15.2); Lymphocytes # (Auto) 0.6 K/mm3 (1.2-5.4); Lymphocytes % (Auto) 7.2 % (13.4-35.0); Mean Corpuscular HGB Conc 34 % (32-34); Mean Corpuscular Volume 92 fl (84-94); Monocytes # (Auto) 0.5 K/mm3 (0.0-0.8); Monocytes % (Auto) 5.6 % (0.0-7.3); Platelet Count 201 K/mm3 (140-440); Red Blood Count 4.09 M/mm3 (3.65-5.03); Red Cell Distribution Width 15.4 % (13.2-15.2)
[2020-10-24 02:45] LABS: Alanine Aminotransferase 25 units/L (7-56); Albumin 3.4 g/dL (3.9-5); BUN/Creatinine Ratio 23; Blood Urea Nitrogen 25 mg/dL (9-20); Calcium 9.4 mg/dL (8.4-10.2); Hemolysis Index 3
[2020-10-24 02:48] LABS: Bacteria,Urine 1+ /HPF (Negative); Bilirubin,Urine NEG (Negative); Blood,Urine NEG (Negative); Color,Urine Yellow (Yellow)
--- NOTE | 2020-10-24 03:27 | Cat Scan Report ---
CT HEAD WITHOUT CONTRAST INDICATION: AMS TECHNIQUE: All CT scans at this location are performed using CT dose reduction for ALARA by means of automated exposure control. COMPARISON: 04/12/2020 FINDINGS: BRAIN: No hemorrhage or mass effect are seen. No evidence of acute infarction is noted. Atrophic chris ges are again noted. ORBITS: Normal as visualized. SOFT TISSUES OF HEAD: Normal. CALVARIUM: Normal. VISUALIZED PARANASAL SINUSES AND MASTOID AIR CELLS: Clear. ADDITIONAL FINDINGS: None. IMPRESSION: No acute intracranial abnormality. Signer Name: Edgar Farrar MD Signed: 10/24/2020 3:22 AM Workstation Name: [id number]
[2020-10-24] MEDS ORDERED: cefTRIAXone/NS 1 GM/50 ML 1 GM/50 ML BAG IV ONE (04:56)
--- NOTE | 2020-10-24 05:05 | Emergency Department Report ---
- General Chief complaint: Weakness Stated complaint: DEMENTIA Time Seen by Provider: 10/24/20 00:51 Source: EMS Mode of arrival: Stretcher Limitations: Altered Mental Status - History of Present Illness Initial comments: 85-year-old male, history of dementia, sent to ED by family due to decreased p.o. intake. Per EMS patient is at his baseline, state that patient is nonverbal and nonambulatory. MD Complaint: generalized weakness -: days(s) (3) Consistency: constant Improves with: none Worsens with: none - Related Data Home Medications Medication Instructions Recorded Confirmed Last Taken Rivastigmine [Rivastigmine Patch 1 each TRANSDERMA DAILY 05/18/17 04/12/20 Unknown 13.3mg/24hr] Previous Rx's Medication Instructions Recorded Last Taken Type Memantine 5 mg PO QDAY #30 tablet 08/02/19 Unknown Rx Metoprolol [Lopressor TAB] 25 mg PO DAILY #30 08/02/19 Unknown Rx donepeziL [Aricept] 10 mg PO QDAY #30 08/02/19 Unknown Rx Allergies Allergy/AdvReac Type Severity Reaction Status Date / Time No Known Allergies Allergy Verified 07/30/19 14:32 ED Review of Systems ROS: Stated complaint: DEMENTIA Other details as noted in HPI Comment: Unobtainable due to pts medical conditions ED Past Medical Hx - Past Medical History Previous Medical History?: Yes Hx Hypertension: Yes Hx CVA: Yes Hx Renal Disease: Yes Hx Arthritis: Yes Hx Dementia: Yes Additional medical history: high cholesterol, history of recurrent gouty arthritis - Surgical History Past Surgical History?: Yes Hx Open Heart Surgery: Yes (CARDIAC BY PASS TRIPPLE BYPASS HX) - Social History Smoking Status: Unknown if ever smoked - Medications Home Medications: Home Medications Medication Instructions Recorded Confirmed Last Taken Type Rivastigmine [Rivastigmine Patch 1 each TRANSDERMA DAILY 05/18/17 04/12/20 Unknown History 13.3mg/24hr] Memantine 5 mg PO QDAY #30 tablet 08/02/19 04/12/20 Unknown Rx Metoprolol [Lopressor TAB] 25 mg PO DAILY #30 08/02/19 04/12/20 Unknown Rx donepeziL [Aricept] 10 mg PO QDAY #30 08/02/19 04/12/20 Unknown Rx ED Physical Exam - General Limitations: Altered Mental Status General appearance: in no apparent distress - Head Head exam: Present: atraumatic, normocephalic - Eye Eye exam: Present: normal appearance - ENT ENT exam: Present: mucous membranes moist - Neck Neck exam: Present: normal inspection - Respiratory Respiratory exam: Present: rhonchi, other (Patient actively coughing) - Cardiovascular Cardiovascular Exam: Present: normal rhythm, bradycardia - GI/Abdominal GI/Abdominal exam: Present: soft. Absent: distended, tenderness - Extremities Exam Extremities exam: Present: normal inspection - Neurological Exam Neurological exam: Present: other (At baseline per EMS) - Skin Skin exam: Present: warm, dry, intact, normal color ED Course Vital Signs 10/24/20 10/24/20 10/24/20 00:54 01:00 02:20 Temperature 93 F L 92.8 F L Pulse Rate 56 L Respiratory 16 Rate Blood Pressure Blood Pressure 124/65 [Left] O2 Sat by Pulse 97 Oximetry 10/24/20 10/24/20 10/24/20 04:00 06:15 07:01 Temperature 94.8 F L 96 F L Pulse Rate 58 L Respiratory 16 Rate Blood Pressure 119/82 103/52 Blood Pressure 110/51 [Left] O2 Sat by Pulse 96 Oximetry 10/24/20 10/24/20 10/24/20 07:53 08:01 08:41 Temperature 97.9 F 98.0 F Pulse Rate 68 Respiratory 18 Rate Blood Pressure 107/59 Blood Pressure 120/65 [Left] O2 Sat by Pulse 98 Oximetry ED Medical Decision Making - Lab Data Result diagrams: 10/24/20 01:54 10/24/20 05:18 - Radiology Data Radiology results: report reviewed, image reviewed - Medical Decision Making 85-year-old male presents to ED with decreased p.o. intake for the last few d ays. Family states patient unable to take any of his medications. Upon presentation vital signs normal except for patient's temperature. Patient found to be hypothermic with a rectal temp of 92.8. Lactic acid is normal. WBCs are normal. Remainder of labs are unremarkable. Patient has coarse cough on exam. Chest x-ray shows possible viral pneumonitis. Patient will be made a PUI. Covid labs and blood cultures ordered. Ceftin and azithromycin given. Patient will be admitted to the hospitalist. - Differential Diagnosis Dehydration, electrolyte abnormality, infection Critical care attestation.: If time is entered above; I have spent that time in minutes in the direct care of this critically ill patient, excluding procedure time. ED Disposition Clinical Impression: Pneumonia, Suspected 2019 novel coronavirus infection, Hypothermia Disposition: OP ADMIT IP TO THIS HOSP Is pt being admited?: Yes Condition: Stable Time of Disposition: 05:05
[2020-10-24 05:48] LABS: C-Reactive Protein 4.1 mg/dL (0.00-1.30)
[2020-10-24] MEDS: AZITHROMYCIN 500 MG in SODIUM CHLORIDE 0.9% 250ML 250 ML IV SCH (06:19)
--- NOTE | 2020-10-24 09:14 | Progress Note ---
Assessment and Plan --Acute Metabolic encephalopathy due to dehydration from poor oral intake, along with underlying dementia CT head head without any acute findings, continue neuro check, aspiration precautions, IV fluid resuscitation therapy., Thyroid panel normal --PUI for COVID 19 Patient placed on COVID-19 protocol with contact and airborne isolation, pulse oximetry COVID-19 PCR ordered -we will follow result Chest x-ray with pneumonitis -received Rocephin and Zithromax in the ER -- Vascular dementia supportive care, fall precautions, neuro checks. --Hypertension Monitor blood pressure every shift, continue medical management. Hydralazine IV as needed -- Coronary artery disease status post CABG Risk factor reduction, low-fat, low-cholesterol diet, aspirin, statin therapy as clinically indicated. --Osteoarthritis Pain control as needed, supportive care. -- DVT prophylaxis Lovenox --Full code status Subjective Date of service: 10/24/20 Interval history: 85-year-old male, history of dementia, sent to ED by family due to decreased p.o. intake. Per EMS patient is at his baseline, state that patient is nonverbal and nonambulatory. Objective - Exam Narrative Exam: General appearance: well-developed, appears stated age, other (no distress, on restrains) EENT: ATNC, PERRL Neck: Present: trachea midline Respiratory: Clear to Ascultation Heart: regular, S1S2, no murmurs Gastrointestinal: Present: normoactive bowel sounds. Absent: tenderness, distended Integumentary: no rash, warm and dry Neurologic: other (opens eyes, non-verbal, not following any command) Musculoskeletal: Present: other (no edema) - Constitutional Vitals: Vital Signs - 12hr 10/24/20 10/24/20 10/24/20 00:54 01:00 02:20 Temperature 93 F L 92.8 F L Pulse Rate 56 L Respiratory 16 Rate Blood Pressure Blood Pressure 124/65 [Left] O2 Sat by Pulse 97 Oximetry 10/24/20 10/24/20 10/24/20 04:00 06:15 07:53 Temperature 94.8 F L 96 F L 97.9 F Pulse Rate 58 L 68 Respiratory 16 18 Rate Blood Pressure 119/82 Blood Pressure 110/51 120/65 [Left] O2 Sat by Pulse 96 98 Oximetry 10/24/20 08:41 Temperature 98.0 F Pulse Rate Respiratory Rate Blood Pressure Blood Pressure [Left] O2 Sat by Pulse Oximetry - Labs CBC & Chem 7: 10/24/20 01:54 10/24/20 05:18 Labs: Abnormal lab results 10/24/20 10/24/20 10/24/20 Range/Units 01:54 01:54 05:18 RDW 15.4 H (13.2-15.2) % Lymph % (Auto) 7.2 L (13.4-35.0) % Lymph # (Auto) 0.6 L (1.2-5.4) K/mm3 Seg Neutrophils % 86.3 H (40.0-70.0) % D-Dimer 501.40 H (0-234) ng/mlDDU BUN 25 H (9-20) mg/dL Ferritin (30.0-300.0) ng/mL Lactate Dehydrogenase (91-180) units/L C-Reactive Protein (0.00-1.30) mg/dL Total Protein 6.0 L (6.3-8.2) g/dL Albumin 3.4 L (3.9-5) g/dL 10/24/20 10/24/20 Range/Units 05:18 05:18 RDW (13.2-15.2) % Lymph % (Auto) (13.4-35.0) % Lymph # (Auto) (1.2-5.4) K/mm3 Seg Neutrophils % (40.0-70.0) % D-Dimer (0-234) ng/mlDDU BUN (9-20) mg/dL Ferritin 350.1 H (30.0-300.0) ng/mL Lactate Dehydrogenase 203 H (91-180) units/L C-Reactive Protein 4.10 H (0.00-1.30) mg/dL Total Protein (6.3-8.2) g/dL Albumin (3.9-5) g/dL
--- NOTE | 2020-10-24 09:23 | History and Physical Report ---
History of Present Illness Date of examination: 10/24/20 Date of admission: 10/24/20 06:03 Chief complaint: Decreased p.o. intake History of present illness: 84 YO Male with Vascular Dementia, Cerebral Atherosclerosis, HTN, CVA, CAD S/P CABG, HLD, OA, Obesity presents to ED for evaluation. Patient is confused, encephalopathic and is unable to provide history at the time of my evaluation. Patient history taken from EMS staff, ED staff and medical record. Patient was sent to ED by family by EMS due to decreased p.o. intake. Per EMS patient is nonverbal and nonambulatory at his baseline. Patient seen and evaluated in the emergency department. Lab and imaging studies reviewed. CXR findings concern for interstitial pneumonitis bilaterally, certainly which could include viral pneumonitis. Patient was given IV Rocephin and Zithromax, admitted with COVID-19 PUI protocol. Past History Past Medical History: arthritis, CAD, hypertension, stroke, other (See HPI) Past Surgical History: CABG Social history: . denies: smoking, alcohol abuse, prescription drug abuse Family history: hypertension Medications and Allergies Allergies Allergy/AdvReac Type Severity Reaction Status Date / Time No Known Allergies Allergy Verified 07/30/19 14:32 Home Medications Medication Instructions Recorded Confirmed Last Taken Type Rivastigmine [Rivastigmine Patch 1 each TRANSDERMA DAILY 05/18/17 04/12/20 Unknown History 13.3mg/24hr] Memantine 5 mg PO QDAY #30 tablet 08/02/19 04/12/20 Unknown Rx Metoprolol [Lopressor TAB] 25 mg PO DAILY #30 08/02/19 04/12/20 Unknown Rx donepeziL [Aricept] 10 mg PO QDAY #30 08/02/19 04/12/20 Unknown Rx Active Meds: Active Medications Ascorbic Acid (Ascorbic Acid 500 Mg Tab) 1,000 mg PO BID SHAUN Cholecalciferol (Cholecalciferol (Vit D3) 5,000 Unit Tab) 5,000 unit PO DAILY SHAUN Enoxaparin Sodium (Enoxaparin 40 Mg/0.4 Ml Inj) 40 mg SUB-Q QDAY@2200 SHAUN; Protocol Azithromycin 500 mg/ Sodium (Chloride) 250 mls @ 250 mls/hr IV Q24HR SHAUN; Protocol Last Admin: 10/24/20 06:19 Dose: 250 mls/hr Documented by: Sodium Chloride (Nacl 0.9% 1000 Ml) 1,000 mls @ 100 mls/hr IV DIRECT SHAUN Zinc Sulfate (Zinc Sulfate 220 Mg Cap) 220 mg PO BID SHAUN Review of Systems ROS unobtainable: due to mental status Exam - Physical Exam Narrative exam: General appearance: well-developed, appears stated age, other (lethargic but open eyes with verbal command) EENT: ATNC, PERRL Neck: Present: trachea midline Respiratory: + rales on Ascultation Heart: regular, S1S2, no murmurs Gastrointestinal: Present: normoactive bowel sounds. Absent: tenderness, distended Integumentary: no rash, dry, clammy, decreased turgor Neurologic: other (opens eyes, non-verbal, not following any command) Musculoskeletal: Present: other (no edema) - Constitutional Vitals: Temp Pulse Resp BP Pulse Ox 98.0 F 68 18 120/65 98 10/24/20 08:41 10/24/20 07:53 10/24/20 07:53 10/24/20 07:53 10/24/20 07:53 Results - Labs CBC & Chem 7: 10/24/20 01:54 10/25/20 08:03 Labs: Abnormal lab results 10/24/20 10/24/20 10/24/20 Range/Units 01:54 01:54 05:18 RDW 15.4 H (13.2-15.2) % Lymph % (Auto) 7.2 L (13.4-35.0) % Lymph # (Auto) 0.6 L (1.2-5.4) K/mm3 Seg Neutrophils % 86.3 H (40.0-70.0) % D-Dimer 501.40 H (0-234) ng/mlDDU BUN 25 H (9-20) mg/dL Ferritin (30.0-300.0) ng/mL Lactate Dehydrogenase (91-180) units/L C-Reactive Protein (0.00-1.30) mg/dL Total Protein 6.0 L (6.3-8.2) g/dL Albumin 3.4 L (3.9-5) g/dL 10/24/20 10/24/20 Range/Units 05:18 05:18 RDW (13.2-15.2) % Lymph % (Auto) (13.4-35.0) % Lymph # (Auto) (1.2-5.4) K/mm3 Seg Neutrophils % (40.0-70.0) % D-Dimer (0-234) ng/mlDDU BUN (9-20) mg/dL Ferritin 350.1 H (30.0-300.0) ng/mL Lactate Dehydrogenase 203 H (91-180) units/L C-Reactive Protein 4.10 H (0.00-1.30) mg/dL Total Protein (6.3-8.2) g/dL Albumin (3.9-5) g/dL - Imaging and Cardiology Chest x-ray: report reviewed (Findings of concern for interstitial pneumonitis bilaterally, ) CT Scan - head: report reviewed (No acute process) Assessment and Plan --Acute Metabolic encephalopathy due to dehydration from poor oral intake, along with underlying dementia CT head head without any acute findings, continue neuro check, aspiration precautions, IV fluid resuscitation therapy., Thyroid panel normal --PUI for COVID 19 Patient placed on COVID-19 protocol with contact and airborne isolation, pulse oximetry COVID-19 PCR ordered -we will follow result Chest x-ray with b/l pneumonitis -received Rocephin and Zithromax in the ER -- Vascular dementia supportive care, fall precautions, neuro checks. --Hypertension Monitor blood pressure every shift, continue medical management. Hydralazine IV as needed -- Coronary artery disease status post CABG Risk factor reduction, low-fat, low-cholesterol diet, aspirin, statin therapy as clinically indicated. --Osteoarthritis Pain control as needed, supportive care. -- DVT prophylaxis Lovenox --Full code status
[2020-10-24] MEDS: SODIUM CHLORIDE 0.9% 1000 ML 1,000 ML IV SCH (14:21)
[2020-10-24] MEDS: ASCORBIC ACID 500 MG TAB PO SCH ×2 (14:27→21:20)
[2020-10-24] MEDS: CHOLECALCIFEROL (VIT D3) 5,000 UNIT TAB PO SCH (14:27)
[2020-10-24] MEDS: ZINC SULFATE 220 MG CAP PO SCH ×2 (14:28→21:20)
[2020-10-24] MEDS: cefTRIAXone/NS 1 GM/50 ML 1 GM/50 ML BAG IV SCH (20:55)
[2020-10-24] MEDS: ENOXAPARIN 40 MG/0.4 ML INJ SUB-Q SCH (21:20)
[2020-10-25] MEDS: SODIUM CHLORIDE 0.9% 1000 ML 1,000 ML IV SCH ×2 (00:38→09:50)
[2020-10-25] MEDS: cefTRIAXone/NS 1 GM/50 ML 1 GM/50 ML BAG IV SCH ×2 (08:00→19:59)
[2020-10-25 09:22] LABS: Calcium 8.8 mg/dL (8.4-10.2)
[2020-10-25] MEDS: ASCORBIC ACID 500 MG TAB PO SCH (09:47)
[2020-10-25] MEDS: ZINC SULFATE 220 MG CAP PO SCH (09:47)
[2020-10-25] MEDS: CHOLECALCIFEROL (VIT D3) 5,000 UNIT TAB PO SCH (09:48)
[2020-10-25] MEDS ORDERED: D5W/0.9% NACL 1,000 ML IV SCH (11:00)
--- NOTE | 2020-10-25 14:56 | Progress Note ---
Assessment and Plan --Acute Metabolic encephalopathy due to dehydration from poor oral intake, along with underlying dementia CT head head without any acute findings, continue neuro check, aspiration precautions, IV fluid resuscitation therapy., Thyroid panel ordered --PUI for COVID 19, negative test --b/l PNA Chest x-ray with b/l pneumonitis -cont Rocephin and Zithromax -- Vascular dementia supportive care, fall precautions, neuro checks. --Hypertension Monitor blood pressure every shift, continue medical management. Hydralazine IV as needed -- Coronary artery disease status post CABG Risk factor reduction, low-fat, low-cholesterol diet, aspirin, statin therapy as clinically indicated. --AZUL, likely from sepsis, cont iv fluid -- hypernatremia, start on hypotonic fluid --Osteoarthritis Pain control as needed, supportive care. -- DVT prophylaxis Lovenox --Full code status 10/25: negative for COVID. cont iv abx for PNA. iv fluid, monitor clinically. Remains minimally responsive - order for TF. follow BMP Subjective Date of service: 10/25/20 Interval history: Patient seen and examined remains lethargic, poor oral intake discussed with RN at bedside Objective - Exam Narrative Exam: General appearance: well-developed, appears stated age, other (lethargic but open eyes with verbal command) EENT: ATNC, PERRL Neck: Present: trachea midline Respiratory: + rales on Ascultation Heart: regular, S1S2, no murmurs Gastrointestinal: Present: normoactive bowel sounds. Absent: tenderness, distended Integumentary: no rash, dry, clammy, decreased turgor Neurologic: other (opens eyes, non-verbal, not following any command) Musculoskeletal: Present: other (no edema) - Constitutional Vitals: Vital Signs - 12hr 10/25/20 12:25 Temperature 98.5 F Pulse Rate 76 Respiratory 18 Rate Blood Pressure 133/63 [Left] - Labs CBC & Chem 7: 10/27/20 04:48 10/26/20 07:41 Labs: Abnormal lab results 10/25/20 Range/Units 08:03 Sodium 148 H (137-145) mmol/L Chloride 111.8 H (98-107) mmol/L BUN 30 H (9-20) mg/dL Creatinine 1.5 H (0.8-1.3) mg/dL Glucose 74 L (75-100) mg/dL
[2020-10-25] MEDS: AZITHROMYCIN 500 MG in SODIUM CHLORIDE 0.9% 250ML 250 ML IV SCH (16:07)
[2020-10-25] MEDS ORDERED: SIMPLE SYRUP 15 ML FEEDTUBE PRN ×2 (16:13)
[2020-10-25] MEDS ORDERED: LIPASE 10,500/PROTEASE 25,000/AMYLASE 43,750 (UNITS) DR CAP FEEDTUBE PRN (16:13)
[2020-10-25] MEDS ORDERED: SODIUM BICARBONATE 325 MG TAB FEEDTUBE PRN (16:13)
[2020-10-25] MEDS ORDERED: NACL IV SCH (17:00)
[2020-10-25] MEDS ORDERED: D5W IV SCH (17:00)
[2020-10-25] MEDS: PANTOPRAZOLE 40 MG INJ IV SCH (17:40)
[2020-10-25] MEDS: ENOXAPARIN 40 MG/0.4 ML INJ SUB-Q SCH (21:23)
--- NOTE | 2020-10-26 00:53 | XRay Report ---
ABDOMEN AP PORTABLE UPRIGHT 0021 INDICATION: verify Dobhoff feeding tube placement COMPARISON: None available. FINDINGS: Feeding tube extends well into the stomach. Signer Name: Edgar Farrar MD Signed: 10/26/2020 12:49 AM Workstation Name: [id number]
[2020-10-26] MEDS: ASCORBIC ACID 500 MG TAB PO SCH ×3 (02:10→22:48)
[2020-10-26] MEDS: ZINC SULFATE 220 MG CAP PO SCH ×3 (02:11→22:49)
[2020-10-26] MEDS: DEXTROSE 5% IV SCH (05:05)
[2020-10-26] MEDS: WATER IV SCH (05:05)
[2020-10-26] MEDS: SODIUM CHLORIDE IV SCH (05:05)
[2020-10-26 08:15] LABS: Basophils % (Auto) 0.2 % (0.0-1.8); Eosinophils % (Auto) 0.1 % (0.0-4.3); Hematocrit 36.3 % (35.5-45.6); Mean Corpuscular HGB Conc 33 % (32-34); Mean Corpuscular Volume 92 fl (84-94); Monocytes # (Auto) 0.5 K/mm3 (0.0-0.8); Monocytes % (Auto) 6.2 % (0.0-7.3); Platelet Count 163 K/mm3 (140-440); Red Blood Count 3.94 M/mm3 (3.65-5.03); Red Cell Distribution Width 15.3 % (13.2-15.2)
[2020-10-26 08:32] LABS: Calcium 9.2 mg/dL (8.4-10.2)
[2020-10-26] MEDS: cefTRIAXone/NS 1 GM/50 ML 1 GM/50 ML BAG IV SCH ×2 (09:07→20:00)
[2020-10-26] MEDS: CHOLECALCIFEROL (VIT D3) 5,000 UNIT TAB PO SCH (09:40)
[2020-10-26] MEDS: PANTOPRAZOLE 40 MG INJ IV SCH (09:40)
[2020-10-26] MEDS: AZITHROMYCIN 500 MG in SODIUM CHLORIDE 0.9% 250ML 250 ML IV SCH (09:45)
[2020-10-26] MEDS ORDERED: SIMPLE SYRUP 15 ML FEEDTUBE PRN ×2 (11:54)
[2020-10-26] MEDS ORDERED: LIPASE 10,500/PROTEASE 25,000/AMYLASE 43,750 (UNITS) DR CAP FEEDTUBE PRN (11:54)
[2020-10-26] MEDS ORDERED: SODIUM BICARBONATE 325 MG TAB FEEDTUBE PRN (11:54)
--- NOTE | 2020-10-26 14:25 | Progress Note ---
Assessment and Plan --Acute Metabolic encephalopathy due to dehydration from poor oral intake, along with underlying dementia CT head head without any acute findings, continue neuro check, aspiration precautions, IV fluid resuscitation therapy., Thyroid panel ordered --PUI for COVID 19, negative test --b/l PNA Chest x-ray with b/l pneumonitis -cont Rocephin and Zithromax -- Vascular dementia supportive care, fall precautions, neuro checks. Patient TF diet --Hypertension Monitor blood pressure every shift, continue medical management. Hydralazine IV as needed -- Coronary artery disease status post CABG Risk factor reduction, aspirin, statin therapy as clinically indicated. --ZAUL, likely from sepsis, cont iv fluid -- hypernatremia, start on hypotonic fluid --Osteoarthritis Pain control as needed, supportive care. -- DVT prophylaxis Lovenox --Full code status 10/25: negative for COVID. cont iv abx for PNA. iv fluid, monitor clinically. Remains minimally responsive - order for TF. follow BMP 10/26: tolerating TF, clinically unchanged. cont iv fluid, iv abx, TF. called family but no response. Subjective Date of service: 10/26/20 Interval history: Patient seen and examined remains lethargic, started on TF discussed with RN at bedside Objective - Exam Narrative Exam: General appearance: well-developed, appears stated age, other (lethargic but open eyes with verbal command) EENT: ATNC, PERRL Neck: Present: trachea midline Respiratory: + rales on Ascultation Heart: regular, S1S2, no murmurs Gastrointestinal: Present: normoactive bowel sounds. Absent: tenderness, distended Integumentary: no rash, dry, clammy, decreased turgor Neurologic: other (opens eyes, non-verbal, not following any command) Musculoskeletal: Present: other (no edema) - Constitutional Vitals: Vital Signs - 12hr 10/26/20 10/26/20 05:27 11:25 Temperature 97.0 F L 98.3 F Pulse Rate 79 77 Respiratory 18 22 Rate Blood Pressure 149/79 Blood Pressure 133/73 [Left] O2 Sat by Pulse 99 90 Oximetry - Labs CBC & Chem 7: 10/27/20 04:48 10/26/20 07:41 Labs: Abnormal lab results 10/26/20 10/26/20 Range/Units 07:41 07:41 RDW 15.3 H (13.2-15.2) % Lymph % (Auto) 12.0 L (13.4-35.0) % Lymph # (Auto) 1.0 L (1.2-5.4) K/mm3 Seg Neutrophils % 81.5 H (40.0-70.0) % Sodium 148 H (137-145) mmol/L Chloride 113.5 H (98-107) mmol/L BUN 32 H (9-20) mg/dL Creatinine 1.4 H (0.8-1.3) mg/dL Glucose 130 H (75-100) mg/dL
[2020-10-26] MEDS: ENOXAPARIN 40 MG/0.4 ML INJ SUB-Q SCH (22:48)
[2020-10-27 06:39] LABS: Basophils % (Auto) 0.1 % (0.0-1.8); Eosinophils % (Auto) 0.1 % (0.0-4.3); Hematocrit 40.2 % (35.5-45.6); Hemoglobin 13.2 gm/dl (11.8-15.2); Lymphocytes # (Auto) 0.9 K/mm3 (1.2-5.4); Lymphocytes % (Auto) 7.9 % (13.4-35.0); Mean Corpuscular HGB Conc 33 % (32-34); Mean Corpuscular Volume 94 fl (84-94); Monocytes # (Auto) 0.8 K/mm3 (0.0-0.8); Monocytes % (Auto) 7.3 % (0.0-7.3); Platelet Count 178 K/mm3 (140-440); Red Blood Count 4.27 M/mm3 (3.65-5.03); Red Cell Distribution Width 15.9 % (13.2-15.2)
[2020-10-27 07:05] LABS: Calcium 9.4 mg/dL (8.4-10.2)
[2020-10-27] MEDS: DEXTROSE 5% IV SCH (07:36)
[2020-10-27] MEDS: WATER IV SCH (07:36)
[2020-10-27] MEDS: SODIUM CHLORIDE IV SCH (07:36)
--- NOTE | 2020-10-27 07:57 | Progress Note ---
Assessment and Plan Assessment and plan: --Acute Metabolic encephalopathy due to dehydration from poor oral intake, along with underlying dementia CT head without any acute findings, continue neuro check, aspiration precautions, IV fluid resuscitation therapy, Thyroid panel ordered --PUI for COVID 19, negative test --b/l PNA Chest x-ray with b/l pneumonitis -cont Rocephin and Zithromax -- Vascular dementia supportive care, fall precautions, neuro checks. Patient TF diet --Hypertension Monitor blood pressure every shift, continue medical management. Hydralazine IV as needed -- Coronary artery disease status post CABG Risk factor reduction, aspirin, statin therapy as clinically indicated. --AZUL, likely from sepsis, cont iv fluid -- hypernatremia, start on hypotonic fluid --Osteoarthritis Pain control as needed, supportive care. -- DVT prophylaxis Lovenox --Full code status 10/25: negative for COVID. cont iv abx for PNA. iv fluid, monitor clinically. Remains minimally responsive - order for TF. follow BMP 10/26: tolerating TF, clinically unchanged. cont iv fluid, iv abx, TF. called family but no response. 10/27/2020; patient is comatose on high flow oxygen and patient is unresponsive. Prognosis is very poor, I have called the son and asked him the CODE STATUS and he wants to be full code. History Interval history: Patient was seen and evaluated this morning Patient was on high flow oxygen, patient was noncommunicative Hospitalist Physical - Physical exam Narrative exam: Patient was on high flow oxygen and comatose The patient appeared well nourished and normally developed. Vital signs as documented. Head exam is unremarkable. No scleral icterus . Neck is without jugular venous distension, thyromegaly, or carotid bruits. Lungs are clear to auscultation. Cardiac exam reveals regular rate and Rhythm. Abdominal exam reveals normal bowel sounds, nontender, no organomegaly. Extremities are nonedematous and both femoral and pedal pulses are normal. SERVICE ASSISTANT: Patient was comatose. - Constitutional Vitals: Temp Pulse Resp BP Pulse Ox 98.7 F 85 18 146/78 91 10/27/20 05:01 10/26/20 23:10 10/27/20 05:01 10/27/20 05:01 10/26/20 23:10 Results - Labs CBC & Chem 7: 10/27/20 04:48 10/27/20 04:48 Labs: Laboratory Last Values WBC 11.0 K/mm3 (4.5-11.0) 10/27/20 04:48 RBC 4.27 M/mm3 (3.65-5.03) 10/27/20 04:48 Hgb 13.2 gm/dl (11.8-15.2) 10/27/20 04:48 Hct 40.2 % (35.5-45.6) 10/27/20 04:48 MCV 94 fl (84-94) 10/27/20 04:48 MCH 31 pg (28-32) 10/27/20 04:48 MCHC 33 % (32-34) 10/27/20 04:48 RDW 15.9 % (13.2-15.2) H 10/27/20 04:48 Plt Count 178 K/mm3 (140-440) 10/27/20 04:48 Lymph % (Auto) 7.9 % (13.4-35.0) L 10/27/20 04:48 [place] % (Auto) 7.3 % (0.0-7.3) 10/27/20 04:48 Eos % (Auto) 0.1 % (0.0-4.3) 10/27/20 04:48 Baso % (Auto) 0.1 % (0.0-1.8) 10/27/20 04:48 Lymph # (Auto) 0.9 K/mm3 (1.2-5.4) L 10/27/20 04:48 [place] # (Auto) 0.8 K/mm3 (0.0-0.8) 10/27/20 04:48 Eos # (Auto) 0.0 K/mm3 (0.0-0.4) 10/27/20 04:48 Baso # (Auto) 0.0 K/mm3 (0.0-0.1) 10/27/20 04:48 Seg Neutrophils % 84.6 % (40.0-70.0) H 10/27/20 04:48 Seg Neutrophils # 9.3 K/mm3 (1.8-7.7) H 10/27/20 04:48 D-Dimer 501.40 ng/mlDDU (0-234) H 10/24/20 05:18 Sodium 151 mmol/L (137-145) H 10/27/20 04:48 Potassium 4.8 mmol/L (3.6-5.0) 10/27/20 04:48 Chloride 113.4 mmol/L (98-107) H 10/27/20 04:48 Carbon Dioxide 28 mmol/L (22-30) 10/27/20 04:48 Anion Gap 14 mmol/L 10/27/20 04:48 BUN 34 mg/dL (9-20) H 10/27/20 04:48 Creatinine 1.6 mg/dL (0.8-1.3) H 10/27/20 04:48 Estimated GFR 41 ml/min 10/27/20 04:48 BUN/Creatinine Ratio 21 % 10/27/20 04:48 Glucose 135 mg/dL (75-100) H 10/27/20 04:48 POC Glucose 95 mg/dL (70-105) 10/26/20 23:59 Lactic Acid 1.00 mmol/L (0.7-2.0) 10/24/20 03:10 Calcium 9.4 mg/dL (8.4-10.2) 10/27/20 04:48 Ferritin 350.1 ng/mL (30.0-300.0) H 10/24/20 05:18 Total Bilirubin 0.40 mg/dL (0.1-1.2) 10/24/20 01:54 AST 26 units/L (5-40) 10/24/20 01:54 ALT 25 units/L (7-56) 10/24/20 01:54 Alkaline Phosphatase 86 units/L (35-129) 10/24/20 01:54 Lactate Dehydrogenase 203 units/L (91-180) H 10/24/20 05:18 C-Reactive Protein 4.10 mg/dL (0.00-1.30) H 10/24/20 05:18 Total Protein 6.0 g/dL (6.3-8.2) L 10/24/20 01:54 Albumin 3.4 g/dL (3.9-5) L 10/24/20 01:54 Albumin/Globulin Ratio 1.3 % 10/24/20 01:54 Procalcitonin 0.09 ng/mL (<0.15) 10/24/20 05:18 Urine Color Yellow (Yellow) 10/24/20 01:05 Urine Turbidity Clear (Clear) 10/24/20 01:05 Urine pH 5.0 (5.0-7.0) 10/24/20 01:05 Ur Specific [place] 1.016 (1.003-1.030) 10/24/20 01:05 Urine Protein 30 mg/dl mg/dL (Negative) 10/24/20 01:05 Urine Glucose (UA) Neg mg/dL (Negative) 10/24/20 01:05 Urine Ketones Neg mg/dL (Negative) 10/24/20 01:05 Urine Blood Neg (Negative) 10/24/20 01:05 Urine Nitrite Neg (Negative) 10/24/20 01:05 Urine Bilirubin Neg (Negative) 10/24/20 01:05 Urine Urobilinogen 2.0 mg/dL (<2.0) 10/24/20 01:05 Ur Leukocyte Esterase Neg (Negative) 10/24/20 01:05 Urine WBC (Auto) 3.0 /HPF (0.0-6.0) 10/24/20 01:05 Urine RBC (Auto) 2.0 /HPF (0.0-6.0) 10/24/20 01:05 U Epithel Cells (Auto) < 1.0 /HPF (0-13.0) 10/24/20 01:05 Urine Bacteria (Auto) 1+ /HPF (Negative) 10/24/20 01:05 Coronavirus (PCR) Negative (Negative) 10/24/20 Unknown Microbiology: Microbiology 10/24/20 05:59 Peripheral/Venous Blood Culture - Preliminary NO GROWTH AFTER 72 HOURS 10/24/20 05:54 Peripheral/Venous Blood Culture - Preliminary NO GROWTH AFTER 48 HOURS Sinha/IV: Voiding Method Condom Catheter IV Catheter Type [Left Forearm Peripheral IV ] Active Medications - Current Medications Current Medications: Generic Name Dose Route Start Last Admin Trade Name Freq PRN Reason Stop Dose Admin Lipase/Protease/Amylase 1 each 10/25/20 16:13 Lipase 10,500/Protease 25,000/Amylase 43,750 (Units) Dr Holland FEEDTUBE PRN PRN For Clogged Feeding Tube Ascorbic Acid 1,000 mg 10/24/20 10:00 10/26/20 22:48 Ascorbic Acid 500 Mg Tab PO 1,000 mg BID SHAUN Administration Aspirin 81 mg 10/27/20 10:00 Aspirin Ec 81 Mg Tab PO QDAY [facility] Atorvastatin Calcium 20 mg 10/27/20 22:00 Atorvastatin 20 Mg Tab PO QHS [facility] Cholecalciferol 5,000 unit 10/24/20 10:00 10/26/20 09:40 Cholecalciferol (Vit D3) 5,000 Unit Tab PO 5,000 unit DAILY SHAUN Administration Donepezil HCl 10 mg 10/27/20 10:00 Donepezil 10 Mg Tab PO QDAY [facility] Enoxaparin Sodium 40 mg 10/24/20 22:00 10/26/20 22:48 Enoxaparin 40 Mg/0.4 Ml Inj SUB-Q 40 mg QDAY@2200 SHAUN Administration Protocol Azithromycin 500 mg/ Sodium 250 mls @ 250 mls/hr 10/24/20 06:00 10/26/20 09:45 Chloride IV 250 mls/hr Q24HR SHAUN Administration Protocol Sodium Chloride 46.2 meq/ 1,000 mls @ 75 mls/hr 10/26/20 05:00 10/27/20 07:36 Dextrose IV 75 mls/hr DIRECT SHAUN Administration Ceftriaxone Sodium 2 gm in 100 mls @ 200 mls/hr 10/27/20 10:00 Rocephin/Ns 2 Gm/100 Ml IV Q24H [facility] Protocol Lansoprazole 30 mg 10/27/20 10:00 Lansoprazole 30 Mg Solutab FEEDTUBE QDAY [facility] Memantine 5 mg 10/27/20 10:00 Memantine 5 Mg Tab PO QDAY [facility] Metoprolol Tartrate 25 mg 10/27/20 10:00 Metoprolol Tartrate 25 Mg Tab PO DAILY [facility] Miscellaneous Medication 1 each 10/27/20 10:00 Rivastigmine [Rivastigmine Patch 13.3mg/24hr] TRANSDERMA DAILY [facility] Simple Syrup 15 ml 10/25/20 16:13 Simple Syrup 15 Ml FEEDTUBE PRN PRN Hypoglycemia Simple Syrup 30 ml 10/25/20 16:13 Simple Syrup 15 Ml FEEDTUBE PRN PRN Hypoglycemia Sodium Bicarbonate 325 mg 10/25/20 16:13 Sodium Bicarbonate 325 Mg Tab FEEDTUBE PRN PRN For Clogged Feeding Tube Zinc Sulfate 220 mg 10/24/20 10:00 10/26/20 22:49 Zinc Sulfate 220 Mg Cap PO 220 mg BID SHAUN Administration Nutrition/Malnutrition Assess - Dietary Evaluation Nutrition/Malnutrition Findings: Nutrition Notes Start: 10/25/20 09:09 Freq: Status: Active Protocol: Document 10/26/20 11:45 EMILY (Rec: 10/26/20 11:54 CHAYDONNIE [id number]) Nutrition Notes Need for Assessment generated from: MD Order Initial or Follow up Reassessment Current Diagnosis Coronary Artery Disease, Hypertension,Stroke, Hyperlipidemia Other Pertinent Diagnosis Decreased PO intake, vascular dementia, r/o COVID-19 Current Diet NPO Labs/Tests Na 148 BUN 32 Cr 1.4 Pertinent Medications Vit C, Vit D3, Zinc sulfate, 46.2mEq NaCl in D5 at 75ml/hr Height 6 ft Weight 90.718 kg [place] Body Weight (kg) 80.90 BMI 27.1 Weight Status Appropriate Subjective/Other Information RD consulted for TF; DHT placed this am. Burn Absent Trauma Absent Minimum of two criteria No #1 Nutrition Diagnosis Inadequate oral intake As Evidenced by Signs and Symptoms pt to start receiving EN support today Diagnosis Progress(for reassessment Continues documentation) Is patient on ventilator? No Is Patient Ambulatory and/or Out of Bed No REE-([facility]-confined to bed) 1969.188 Calculation Used for Recommendations [facility] Additional Notes Pro needs 1-1.2g/k-109g/ day Fluid needs 1ml/kcal Nutrition Intervention Nutrition Support: Jevity 1.2 at 70ml/hr with 110ml water flush q4h. Kcal 2,016 Protein (gm) 93 Carbohydrates (gm) 285 Fat (gm) 66 Fluid (mL) 1,356 Fiber (gm) 30 Add Supplement/Snack (indicate name/kcal D/C Ensure Enlive /protein ) Goal #1 TF tolerance Goal #2 TF (at goal rate) to meet at least 75% energy and pro needs Anticipated Discharge Needs: Continue TF Follow-Up By: 10/28/20 Additional Comments F/U: new TF
[2020-10-27] MEDS: AZITHROMYCIN 500 MG in SODIUM CHLORIDE 0.9% 250ML 250 ML IV SCH (09:06)
[2020-10-27] MEDS: CHOLECALCIFEROL (VIT D3) 5,000 UNIT TAB PO SCH (09:09)
[2020-10-27] MEDS: ZINC SULFATE 220 MG CAP PO SCH (09:09)
[2020-10-27 09:15] VITALS: BP 126/61
[2020-10-27] MEDS ORDERED: METOPROLOL TARTRATE 25 MG TAB PO SCH (10:00)
[2020-10-27] MEDS ORDERED: MEMANTINE 5 MG TAB PO SCH (10:00)
[2020-10-27] MEDS ORDERED: cefTRIAXone/NS 2 GM/100 ML 2 GM/100 ML BAG IV SCH (10:00)
[2020-10-27] MEDS ORDERED: ASPIRIN EC 81 MG TAB PO SCH (10:00)
[2020-10-27] MEDS ORDERED: METOPROLOL TARTRATE 100 MG TAB PO SCH (10:00)
[2020-10-27] MEDS ORDERED: RIVASTIGMINE TRANSDERMA SCH (10:00)
[2020-10-27] MEDS ORDERED: LANSOPRAZOLE 30 MG SOLUTAB FEEDTUBE SCH (10:00)
[2020-10-27] MEDS ORDERED: DONEPEZIL 10 MG TAB PO SCH (10:00)
[2020-10-27] MEDS ORDERED: SODIUM BICARB 8.4% 50 MEQ/50 ML SYRINGE IV ONE (12:25)
[2020-10-27] MEDS ORDERED: EPINEPHrine 1 MG/10 ML SYRINGE ONE (12:25)
--- NOTE | 2020-10-27 12:47 | Death Summary ---
Summary - Providers Date of service: 10/27/20 Consults: 10/25/20 02:40 Speech Therapy Evaluation and Treat [CONS] Stat Reason For Exam: Pt. unable to control secretion 10/25/20 16:14 Consult to Dietitian/Nutrition [CONS] Routine Physician Instructions: Reason For Exam: Reason for Consult: Write/Manage Tube Feeding Consult to Dietitian/Nutrition [CONS] Routine Physician Instructions: Assess nutrtn needs, initiate, modify, manage TF Reason For Exam: Reason for Consult: Write/Manage Tube Feeding Reason for Consult: Write/Manage Tube Feeding Attending: JULIET EPPS MD - summary Date of admission: 10/24/20 06:03 Date of : 10/27/20 Significant findings: 84 YO Male with Vascular Dementia, Cerebral Atherosclerosis, HTN, CVA, CAD S/P CABG, HLD, OA, Obesity presents to ED for evaluation. Patient is confused, encephalopathic and is unable to provide history at the time of my evaluation. Patient history taken from EMS staff, ED staff and medical record. Patient was sent to ED by family by EMS due to decreased p.o. intake. Per EMS patient is nonverbal and nonambulatory at his baseline. Patient seen and evaluated in the emergency department. Lab and imaging studies reviewed. CXR findings concern for interstitial pneumonitis bilaterally, certainly which could include viral pneumonitis. Patient was given IV Rocephin and Zithromax, admitted with COVID-19 PUI protocol. --Acute Metabolic encephalopathy due to dehydration from poor oral intake, along with underlying dementia CT head without any acute findings, continue neuro check, aspiration precautions, IV fluid resuscitation therapy, Thyroid panel ordered --PUI for COVID 19, negative test --b/l PNA Chest x-ray with b/l pneumonitis -cont Rocephin and Zithromax -- Vascular dementia supportive care, fall precautions, neuro checks. Patient TF diet --Hypertension Monitor blood pressure every shift, continue medical management. Hydralazine IV as needed -- Coronary artery disease status post CABG Risk factor reduction, aspirin, statin therapy as clinically indicated. --AZUL, likely from sepsis, cont iv fluid -- hypernatremia, start on hypotonic fluid --Osteoarthritis Pain control as needed, supportive care. -- DVT prophylaxis Lovenox --Full code status 10/25: negative for COVID. cont iv abx for PNA. iv fluid, monitor clinically. Remains minimally responsive - order for TF. follow BMP 10/26: tolerating TF, clinically unchanged. cont iv fluid, iv abx, TF. called family but no response. 10/27/2020; patient is comatose on high flow oxygen and patient is unresponsive. Prognosis is very poor, I have called the son and asked him the CODE STATUS and he wants to be full code. Patient is in respiratory distress and on 15 L of high flow oxygen. I recommended hospice for this patient. Patient was coded and resuscitated according to ACLS protocol but we could not salvage and the patient at 12:42. I have discussed with the son about the condition. When the patient was coded I called the son and still he insists to be full code despite his poor condition. Procedures/treatments rendered: As stated above. - Final diagnosis (1) Hypothermia Note: Final diagnosis: (2) Respiratory failure Qualifiers: Chronicity: acute Respiratory failure complication: hypoxia Qualified Code(s): J96.01 - Acute respiratory failure with hypoxia Note: Final diagnosis: (3) Hyponatremia Note: Final diagnosis: (4) AZUL (acute kidney injury) Note: Final diagnosis: (5) Advance care planning Note: Final diagnosis: (6) Debility Note: Final diagnosis: (7) Dementia Qualifiers: Dementia type: vascular dementia Dementia behavioral disturbance: without behavioral disturbance Qualified Code(s): F01.50 - Vascular dementia without behavioral disturbance Note: Final diagnosis: (8) Encephalopathy Note: Final diagnosis: (9) Hypernatremia Note: Final diagnosis: (10) Hypertension Qualifiers: Hypertension type: essential hypertension Qualified Code(s): I10 - Essential (primary) hypertension Note: Final diagnosis: (11) Metabolic encephalopathy Note: Final diagnosis:
--- NOTE | 2020-10-27 12:47 | Death Note ---
Note Date of : 10/27/20 Time of : 12:42 Time Pronounced: 12:42 - Preliminary Cause of (problem) (1) Hypothermia Preliminary cause of (2) Respiratory failure Preliminary cause of
== END 2020-10-27 12:42 | DRG 70 ==
LOC: ED 00:16 → 3A 06:03 → OBSVTOIN 06:03
PROVIDERS: ADMIT Internal Medicine; ATTEND Internal Medicine
PROC: 0DH67UZ Insertion of Feeding Device into Stomach, Via Natural or Artificial Opening (ICD-10-PCS; principal; 2020-10-26)
DX: G93.41 Metabolic encephalopathy (principal); J18.9 Pneumonia, unspecified organism; N17.0 Acute kidney failure with tubular necrosis; J96.90 Respiratory failure, unspecified, unspecified whether with hypoxia or hypercapnia; E87.1 Hypo-osmolality and hyponatremia; F03.90 Unspecified dementia, unspecified severity, without behavioral disturbance, psychotic disturbance, mood disturbance, and anxiety; T68.XXXA Hypothermia, initial encounter; E86.0 Dehydration; Z82.49 Family history of ischemic heart disease and other diseases of the circulatory system; I10 Essential (primary) hypertension; M19.90 Unspecified osteoarthritis, unspecified site; I25.10 Atherosclerotic heart disease of native coronary artery without angina pectoris; Z86.73 Personal history of transient ischemic attack (TIA), and cerebral infarction without residual deficits; Z95.5 Presence of coronary angioplasty implant and graft; Z20.828 Contact with and (suspected) exposure to other viral communicable diseases
CPT/HCPCS: 36415; 70450; 71045; 74018; 80048; 80053; 81001; 82140; 82728; 82947; 82962; 83615; 84145; 84439; 84443; 85025; 85379; 86140; 87040; 94760; 96365; G0378; C9113; J0171; J0456; J0696; J1650; J7030; J7042; J7050; J7070; J7131; U0003